=== PATIENT | male | born 1980 | race Caucasian/White ===

== ENCOUNTER 2017-10-28 00:32 | Observation (INO) ==
--- NOTE | 2017-10-28 00:54 | Emergency Department Note ---
Disposition Clinical Impression: Visual hallucinations, History of hepatitis C, History of meningitis Altered mental status Qualifiers: Altered mental status type: unspecified Qualified Code(s): R41.82 - Altered mental status, unspecified Disposition: Admitted As Inpatient Condition: Good Time of Disposition: 03:35 Abdominal Pain HPI - General Chief Complaint: ED Abdominal Pain Stated Complaint: abd pain, hallucinations Time Seen by Provider: 10/28/17 00:36 Source: patient, EMS Mode of arrival: ambulatory Limitations: no limitations Nursing Notes Reviewed: Yes Vital Signs Reviewed: Yes - History of Present Illness HPI Narrative: Patient is a 36-year-old male with extensive past medical history. 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 He presents today due to visual hallucinations along with epigastric and chest pain. The patient's girlfriend/ fiance is with him and she states that the patient has had hallucinations this evening. He has been saying that he has red spots on his hands and also believes that people are shooting him with heroin darts. The patient himself admits to marijuana use but denies any other drug use, specifically denies heroin use for the past 5-6 months. He does admit to a history of heroin use prior to that. The patient himself is complaining of epigastric/chest pain. He points to his epigastric region when he is asked where the pain is. He is telling me that he has spots on his hands but I am unable to appreciate anything on his hands. Denies any shortness of breath, nausea, vomiting, fevers , diarrhea, abdominal pain. states the patient had hallucinations once in the past after being released from hospital. However, she denies any other psychiatric history, he has not been admitted for psychiatric care in the past according to her. Pain Scale: 8 - Related Data Home Medications Medication Instructions Recorded Confirmed Albuterol Neb [AccuNeb] 1.25 mg IH QID 10/08/17 10/08/17 Allopurinol [Zyloprim 100 MG] 100 mg PO BID 10/08/17 10/08/17 Cyanocobalamin (B-12) [Vitamin B12] 1,000 mcg PO DAILY 10/08/17 10/08/17 Fluconazole [Diflucan] 200 mg PO DAILY 10/08/17 10/08/17 Folic Acid 1 mg PO DAILY 10/08/17 10/08/17 Gabapentin [Neurontin] 100 mg PO TID 10/08/17 10/08/17 LevETIRAcetam [Keppra Xr] 750 mg PO 10/08/17 Mag Oxide/D3/Turmeric Rt Xt 400 PO DAILY 10/08/17 [Magnesium-Vit D3-Turmeric Cap] Nitroglycerin [Nitrostat] 1 PO 10/08/17 clonazePAM [Clonazepam] 0.5 mg PO TID 10/08/17 10/08/17 traZODone [TraZODone] 50 mg PO HS 10/08/17 10/08/17 Previous Rx's Medication Instructions Recorded Hydrocodone/Acetaminophen [[place] 1 tab PO TID PRN #10 tab 09/24/15 5-325 Tablet] Allergies Allergy/AdvReac Type Severity Reaction Status Date / Time No Known Allergies Allergy Verified 10/08/17 12:10 All systems ED: reviewed and negative except as stated. Constitutional: Denies: fever Cardiovascular: Reports: chest pain Respiratory: Denies: cough, dyspnea Gastrointestinal: Reports: abdominal pain. Denies: nausea, vomiting, diarrhea, constipation Genitourinary: Denies: urgency, dysuria, frequency, hematuria Musculoskeletal: Denies: back pain Integumentary: Denies: rash Neurological: Denies: weakness, numbness, paresthesias Psychiatric: Reports: visual hallucinations. Denies: anxiety, depression, suicidal thoughts, homicidal thoughts, auditory hallucinations Abdominal Pain PMH - Past Medical History Medical history: Reports: CVA, other Male Surgical History: Reports: other Psychiatric history: Reports: no psych history - Social History Smoking status: Current every day smoker Alcohol use: Reports: none Drug use: Reports: opiates, marijuana, IV Drug Use Physical Exam - General General appearance: alert, in no apparent distress - Head Head exam: atraumatic, other (scars from previous cranial surgeries) - Eye Eye exam: Present: normal appearance, PERRL, EOMI - ENT ENT exam: normal exam, normal oropharynx, mucous membranes moist - Neck Neck exam: Present: normal inspection, full ROM, trachea midline. Absent: tenderness, meningismus - Chest Chest inspection: Present: normal inspection, symmetric chest wall rise - Respiratory Respiratory exam: Present: normal lung sounds bilaterally - Cardiovascular Cardiovascular exam: Present: regular rate, normal rhythm, normal heart sounds - Abdominal Exam Abdominal exam: Present: soft, Non-Tender. Absent: tenderness, distention, guarding, rebound, rigidity - Extremities Exam Extremities exam: Present: normal inspection, full ROM. Absent: tenderness, pedal edema - Neurological Exam Neurological exam: Present: alert, other (Oriented to person and place; mildly confused, having visual hallucinations.) - Psychiatric Psychiatric exam: Present: normal mood, flat affect. Absent: depressed, agitated, anxious - Skin Skin exam: Present: warm, dry, intact, normal color. Absent: rash, erythema, pallor, mottled Course Course Narrative: Vitals within normal limits. Physical exam shows old scars from previous cranial surgery's. No neck stiffness, no meningeal signs. Lungs clear to auscultation. Abdomen soft and nontender. No tenderness of chest. We did extensive lab workup. No elevation white blood cell count. Hemoglobin within normal limits. No major electrolyte abnormalities. Troponin negative. Lipase negative. AST and ALT elevated, however, patient does have a history of hepatitis C. Ammonia level not elevated. ABG shows a pH of 7.28. Carboxyhemoglobin level not majorly elevated. UA negative for UTI. Urine drug screen positive only for marijuana. Tylenol, aspirin, ethanol levels negative. CT of the head showed chronic changes from previous cysts. Otherwise no other acute intracranial abnormality. Chest x-ray negative for any acute cardiopulmonary process. No specific etiology identified for visual hallucinations. No major lab abnormalities that would prompt a CT of the abdomen and pelvis at this time, especially since he has no reproducible tenderness on abdominal exam. Patient currently sleeping comfortably on bed. We will admit to hospitalist due to visual hallucinations and epigastric pain. Chest X-Ray 10/28/17 00:45 IMPRESSION: No acute cardiopulmonary abnormality. D/ / Reji Alvares MD / Reji Alvares MD Interpreting Provider: Reji Alvares MD Head CT 10/28/17 00:47 IMPRESSION: 1. Interval development of multifocal areas of encephalomalacia involving the right frontal, right frontal parietal, right temporal, left frontal parietal and left occipital lobes. There are areas of coarse or dystrophic calcifications in the bilateral frontoparietal regions. Findings likely represent sequela of prior infarction or trauma. 2. Otherwise no definite acute findings. 3. No acute intracranial hemorrhage. D/ / Art Han MD / Art Han MD Interpreting Provider: Art Han MD Vital Signs Temperature 98.0 F 10/28/17 00:33 Pulse Rate 84 10/28/17 00:33 Respiratory Rate 20 10/28/17 00:33 Blood Pressure 113/59 10/28/17 00:33 O2 Sat by Pulse Oximetry 97 10/28/17 00:33 Temperature 98.0 F 10/28/17 00:33 Pulse Rate 84 10/28/17 00:33 Respiratory Rate 20 10/28/17 00:33 Blood Pressure 113/59 10/28/17 00:33 O2 Sat by Pulse Oximetry 95 10/28/17 00:54 Oxygen Delivery Oxygen Delivery Room Air Abdominal Pain - MDM Narrative Medical decision making narrative: Vitals within normal limits. Physical exam shows old scars from previous cranial surgery's. No neck stiffness, no meningeal signs. Lungs clear to auscultation. Abdomen soft and nontender. No tenderness of chest. We did extensive lab workup. No elevation white blood cell count. Hemoglobin within normal limits. No major electrolyte abnormalities. Troponin negative. Lipase negative. AST and ALT elevated, however, patient does have a history of hepatitis C. Ammonia level not elevated. ABG shows a pH of 7.28. Carboxyhemoglobin level not majorly elevated. UA negative for UTI. Urine drug screen positive only for marijuana. Tylenol, aspirin, ethanol levels negative. CT of the head showed chronic changes from previous cysts. Otherwise no other acute intracranial abnormality. Chest x-ray negative for any acute cardiopulmonary process. No specific etiology identified for visual hallucinations. No major lab abnormalities that would prompt a CT of the abdomen and pelvis at this time, especially since he has no reproducible tenderness on abdominal exam. Patient currently sleeping comfortably on bed. We will admit to hospitalist due to visual hallucinations and epigastric pain. - Medical Records Medical records reviewed: Yes I reviewed the patient's medical records. - Lab Data Lab results reviewed: Yes I reviewed the patient's lab results. Result diagrams: 10/28/17 01:25 10/28/17 01:25 Lab Results 10/28/17 10/28/17 10/28/17 Range/Units 00:52 00:54 01:25 WBC (4.3-11.1) K/mcL RBC (4.19-5.50) M/mcL Hgb (12.9-16.9) g/dL Hct (37.5-50.1) % MCV (83.0-100.0) fL MCH (28.0-33.3) pg MCHC (31.6-35.5) g/dL RDW (11.5-14.5) % Plt Count (140-400) K/mcL MPV (9.4-12.4) fL Immature Gran % (0-4) % Seg Neutrophils % % Lymphocytes % % Monocytes % % Eosinophils % % Basophils % % Neutrophils # (1.6-8.9) K/mcL Lymphocytes # (0.6-4.6) K/mcL Monocytes # (0.0-1.3) K/mcL Eosinophils # (0.0-0.6) K/mcL Basophils # (0.0-0.2) K/mcL PT 17.7 H (9.4-12.1) Seconds INR 1.6 APTT 31.8 (26.0-36.0) Seconds VBG pH (7.32-7.42) pH Units VBG pCO2 (41-51) mmHg VBG pO2 (25-50) mmHg VBG HCO3 (21-27) mEq/L Carboxyhemoglobin (0-5) % Sodium (136-145) mEq/L Potassium (3.5-5.1) mEq/L Chloride (98-107) mEq/L Carbon Dioxide (23-29) mEq/L BUN (6-20) mg/dL Creatinine (0.70-1.30) mg/dL Est GFR ( Amer) (> 60) Est GFR (Non-Af Amer) (> 60) BUN/Creatinine Ratio (6-26) Glucose (70-105) mg/dL Calculated Osmolality (280-300) Calcium (8.6-10.3) mg/dL Total Bilirubin (0.3-1.0) mg/dL Direct Bilirubin (0.0-0.2) mg/dL Indirect Bilirubin (0.0-1.2) mg/dL AST (13-39) Units/L ALT (7-52) Units/L Alkaline Phosphatase (34-104) Units/L Ammonia (16-53) mcmol/L Troponin I (< 0.04) ng/mL Serum Total Protein (6.4-8.9) g/dL Albumin (3.5-5.7) g/dL Globulin (2.4-3.5) g/dL Albumin/Globulin Ratio (1.1-2.2) Lipase (11-82) Units/L Urine Color Dark Yellow (Yellow) Urine Clarity Clear (Clear) Urine pH 6.0 (5.0-8.0) pH Units Ur Specific Jackson 1.028 H (1.010-1.025) Urine Protein 30 H (Neg-Trace) mg/dL Urine Glucose (UA) Normal (Normal) mg/dL Urine Ketones Negative (Negative) mg/dL Urine Blood Negative (Negative) Urine Nitrite Negative (Negative) Urine Bilirubin Small H (Negative) Urine Urobilinogen Normal (Normal) mg/dL Ur Leukocyte Esterase Trace H (Negative) Urine Microscopic RBC 3-5 H (0-3) per hpf Urine Microscopic WBC 5-15 H (0-3) per hpf Ur Squamous Epith Cells Many H (None-Few) per lpf Urine Bacteria None Seen (None-Few) per hpf Hyaline Casts None Seen (None-Few) per lpf Ur Culture Indicated? NO. (NO) Salicylates (15.0-30.0) mg/dL Urine Opiates Screen Negative (Ctaton=092) ng/mL Acetaminophen (10-30) mcg/mL Ur Barbiturates Screen Negative (Hgmmwf=372) ng/mL Ur Phencyclidine Scrn Negative (Cutoff=25) ng/mL Ur Amphetamines Screen Negative (Yvspzq=0858) ng/mL U Benzodiazepines Scrn Negative (Jqhtet=096) ng/mL Urine Cocaine Screen Negative (Cutoff= 300) ng/mL U Marijuana (THC) Screen Positive H (Cutoff = 50) ng/mL Ethyl Alcohol (0-10) mg/dL 10/28/17 10/28/17 10/28/17 Range/Units 01:25 01:25 01:25 WBC 5.4 (4.3-11.1) K/mcL RBC 4.13 L (4.19-5.50) M/mcL Hgb 12.7 L (12.9-16.9) g/dL Hct 39.9 (37.5-50.1) % MCV 96.6 (83.0-100.0) fL MCH 30.8 (28.0-33.3) pg MCHC 31.8 (31.6-35.5) g/dL RDW 16.0 H (11.5-14.5) % Plt Count 130 L (140-400) K/mcL MPV 12.0 (9.4-12.4) fL Immature Gran % 0.2 (0-4) % Seg Neutrophils % 64.9 % Lymphocytes % 26.1 % Monocytes % 6.9 % Eosinophils % 1.3 % Basophils % 0.6 % Neutrophils # 3.5 (1.6-8.9) K/mcL Lymphocytes # 1.4 (0.6-4.6) K/mcL Monocytes # 0.4 (0.0-1.3) K/mcL Eosinophils # 0.1 (0.0-0.6) K/mcL Basophils # 0.0 (0.0-0.2) K/mcL PT (9.4-12.1) Seconds INR APTT (26.0-36.0) Seconds VBG pH (7.32-7.42) pH Units VBG pCO2 (41-51) mmHg VBG pO2 (25-50) mmHg VBG HCO3 (21-27) mEq/L Carboxyhemoglobin (0-5) % Sodium 139 (136-145) mEq/L Potassium 4.1 (3.5-5.1) mEq/L Chloride 112 H (98-107) mEq/L Carbon Dioxide 22 L (23-29) mEq/L BUN 14 (6-20) mg/dL Creatinine 1.08 (0.70-1.30) mg/dL Est GFR ( Amer) > 60 (> 60) Est GFR (Non-Af Amer) > 60 (> 60) BUN/Creatinine Ratio 13 (6-26) Glucose 119 H (70-105) mg/dL Calculated Osmolality 290 (280-300) Calcium 8.4 L (8.6-10.3) mg/dL Total Bilirubin 0.7 (0.3-1.0) mg/dL Direct Bilirubin 0.3 H (0.0-0.2) mg/dL Indirect Bilirubin 0.4 (0.0-1.2) mg/dL AST 71 H (13-39) Units/L ALT 80 H (7-52) Units/L Alkaline Phosphatase 165 H (34-104) Units/L Ammonia (16-53) mcmol/L Troponin I < 0.03 (< 0.04) ng/mL Serum Total Protein 6.2 L (6.4-8.9) g/dL Albumin 3.6 (3.5-5.7) g/dL Globulin 2.6 (2.4-3.5) g/dL Albumin/Globulin Ratio 1.4 (1.1-2.2) Lipase 15 (11-82) Units/L Urine Color (Yellow) Urine Clarity (Clear) Urine pH (5.0-8.0) pH Units Ur Specific [place] (1.010-1.025) Urine Protein (Neg-Trace) mg/dL Urine Glucose (UA) (Normal) mg/dL Urine Ketones (Negative) mg/dL Urine Blood (Negative) Urine Nitrite (Negative) Urine Bilirubin (Negative) Urine Urobilinogen (Normal) mg/dL Ur Leukocyte Esterase (Negative) Urine Microscopic RBC (0-3) per hpf Urine Microscopic WBC (0-3) per hpf Ur Squamous Epith Cells (None-Few) per lpf Urine Bacteria (None-Few) per hpf Hyaline Casts (None-Few) per lpf Ur Culture Indicated? (NO) Salicylates (15.0-30.0) mg/dL Urine Opiates Screen (Vlhaqe=087) ng/mL Acetaminophen (10-30) mcg/mL Ur Barbiturates Screen (Eqnsij=244) ng/mL Ur Phencyclidine Scrn (Cutoff=25) ng/mL Ur Amphetamines Screen (Whbhfx=8611) ng/mL U Benzodiazepines Scrn (Edpszu=374) ng/mL Urine Cocaine Screen (Cutoff= 300) ng/mL U Marijuana (THC) Screen (Cutoff = 50) ng/mL Ethyl Alcohol (0-10) mg/dL 10/28/17 10/28/17 10/28/17 Range/Units 01:25 01:25 01:25 WBC (4.3-11.1) K/mcL RBC (4.19-5.50) M/mcL Hgb (12.9-16.9) g/dL Hct (37.5-50.1) % MCV (83.0-100.0) fL MCH (28.0-33.3) pg MCHC (31.6-35.5) g/dL RDW (11.5-14.5) % Plt Count (140-400) K/mcL MPV (9.4-12.4) fL Immature Gran % (0-4) % Seg Neutrophils % % Lymphocytes % % Monocytes % % Eosinophils % % Basophils % % Neutrophils # (1.6-8.9) K/mcL Lymphocytes # (0.6-4.6) K/mcL Monocytes # (0.0-1.3) K/mcL Eosinophils # (0.0-0.6) K/mcL Basophils # (0.0-0.2) K/mcL PT (9.4-12.1) Seconds INR APTT (26.0-36.0) Seconds VBG pH (7.32-7.42) pH Units VBG pCO2 (41-51) mmHg VBG pO2 (25-50) mmHg VBG HCO3 (21-27) mEq/L Carboxyhemoglobin 6.1 H (0-5) % Sodium (136-145) mEq/L Potassium (3.5-5.1) mEq/L Chloride (98-107) mEq/L Carbon Dioxide (23-29) mEq/L BUN (6-20) mg/dL Creatinine (0.70-1.30) mg/dL Est GFR ( Amer) (> 60) Est GFR (Non-Af Amer) (> 60) BUN/Creatinine Ratio (6-26) Glucose (70-105) mg/dL Calculated Osmolality (280-300) Calcium (8.6-10.3) mg/dL Total Bilirubin (0.3-1.0) mg/dL Direct Bilirubin (0.0-0.2) mg/dL Indirect Bilirubin (0.0-1.2) mg/dL AST (13-39) Units/L ALT (7-52) Units/L Alkaline Phosphatase (34-104) Units/L Ammonia 34 (16-53) mcmol/L Troponin I (< 0.04) ng/mL Serum Total Protein (6.4-8.9) g/dL Albumin (3.5-5.7) g/dL Globulin (2.4-3.5) g/dL Albumin/Globulin Ratio (1.1-2.2) Lipase (11-82) Units/L Urine Color (Yellow) Urine Clarity (Clear) Urine pH (5.0-8.0) pH Units Ur Specific [place] (1.010-1.025) Urine Protein (Neg-Trace) mg/dL Urine Glucose (UA) (Normal) mg/dL Urine Ketones (Negative) mg/dL Urine Blood (Negative) Urine Nitrite (Negative) Urine Bilirubin (Negative) Urine Urobilinogen (Normal) mg/dL Ur Leukocyte Esterase (Negative) Urine Microscopic RBC (0-3) per hpf Urine Microscopic WBC (0-3) per hpf Ur Squamous Epith Cells (None-Few) per lpf Urine Bacteria (None-Few) per hpf Hyaline Casts (None-Few) per lpf Ur Culture Indicated? (NO) Salicylates < 5.0 L (15.0-30.0) mg/dL Urine Opiates Screen (Aavopp=815) ng/mL Acetaminophen < 1.0 L (10-30) mcg/mL Ur Barbiturates Screen (Xcnacj=351) ng/mL Ur Phencyclidine Scrn (Cutoff=25) ng/mL Ur Amphetamines Screen (Lvikkm=6202) ng/mL U Benzodiazepines Scrn (Hdxtki=554) ng/mL Urine Cocaine Screen (Cutoff= 300) ng/mL U Marijuana (THC) Screen (Cutoff = 50) ng/mL Ethyl Alcohol < 10 (0-10) mg/dL 10/28/17 Range/Units 01:38 WBC (4.3-11.1) K/mcL RBC (4.19-5.50) M/mcL Hgb (12.9-16.9) g/dL Hct (37.5-50.1) % MCV (83.0-100.0) fL MCH (28.0-33.3) pg MCHC (31.6-35.5) g/dL RDW (11.5-14.5) % Plt Count (140-400) K/mcL MPV (9.4-12.4) fL Immature Gran % (0-4) % Seg Neutrophils % % Lymphocytes % % Monocytes % % Eosinophils % % Basophils % % Neutrophils # (1.6-8.9) K/mcL Lymphocytes # (0.6-4.6) K/mcL Monocytes # (0.0-1.3) K/mcL Eosinophils # (0.0-0.6) K/mcL Basophils # (0.0-0.2) K/mcL PT (9.4-12.1) Seconds INR APTT (26.0-36.0) Seconds VBG pH 7.28 L (7.32-7.42) pH Units VBG pCO2 46 (41-51) mmHg VBG pO2 39 (25-50) mmHg VBG HCO3 22 (21-27) mEq/L Carboxyhemoglobin (0-5) % Sodium (136-145) mEq/L Potassium (3.5-5.1) mEq/L Chloride (98-107) mEq/L Carbon Dioxide (23-29) mEq/L BUN (6-20) mg/dL Creatinine (0.70-1.30) mg/dL Est GFR ( Amer) (> 60) Est GFR (Non-Af Amer) (> 60) BUN/Creatinine Ratio (6-26) Glucose (70-105) mg/dL Calculated Osmolality (280-300) Calcium (8.6-10.3) mg/dL Total Bilirubin (0.3-1.0) mg/dL Direct Bilirubin (0.0-0.2) mg/dL Indirect Bilirubin (0.0-1.2) mg/dL AST (13-39) Units/L ALT (7-52) Units/L Alkaline Phosphatase (34-104) Units/L Ammonia (16-53) mcmol/L Troponin I (< 0.04) ng/mL Serum Total Protein (6.4-8.9) g/dL Albumin (3.5-5.7) g/dL Globulin (2.4-3.5) g/dL Albumin/Globulin Ratio (1.1-2.2) Lipase (11-82) Units/L Urine Color (Yellow) Urine Clarity (Clear) Urine pH (5.0-8.0) pH Units Ur Specific Jackson (1.010-1.025) Urine Protein (Neg-Trace) mg/dL Urine Glucose (UA) (Normal) mg/dL Urine Ketones (Negative) mg/dL Urine Blood (Negative) Urine Nitrite (Negative) Urine Bilirubin (Negative) Urine Urobilinogen (Normal) mg/dL Ur Leukocyte Esterase (Negative) Urine Microscopic RBC (0-3) per hpf Urine Microscopic WBC (0-3) per hpf Ur Squamous Epith Cells (None-Few) per lpf Urine Bacteria (None-Few) per hpf Hyaline Casts (None-Few) per lpf Ur Culture Indicated? (NO) Salicylates (15.0-30.0) mg/dL Urine Opiates Screen (Hxjipo=328) ng/mL Acetaminophen (10-30) mcg/mL Ur Barbiturates Screen (Jhxucc=633) ng/mL Ur Phencyclidine Scrn (Cutoff=25) ng/mL Ur Amphetamines Screen (Boqogn=6417) ng/mL U Benzodiazepines Scrn (Bxtapx=920) ng/mL Urine Cocaine Screen (Cutoff= 300) ng/mL U Marijuana (THC) Screen (Cutoff = 50) ng/mL Ethyl Alcohol (0-10) mg/dL - Radiology Data Radiology results reviewed: Yes I reviewed the patient's radiology results. Chest X-Ray 10/28/17 00:45 IMPRESSION: No acute cardiopulmonary abnormality. D/ / Reji Alvares MD / Reji Alvares MD Interpreting Provider: Reji Alvares MD Head CT 10/28/17 00:47 IMPRESSION: 1. Interval development of multifocal areas of encephalomalacia involving the right frontal, right frontal parietal, right temporal, left frontal parietal and left occipital lobes. There are areas of coarse or dystrophic calcifications in the bilateral frontoparietal regions. Findings likely represent sequela of prior infarction or trauma. 2. Otherwise no definite acute findings. 3. No acute intracranial hemorrhage. D/ / Art Han MD / Art Han MD Interpreting Provider: Art Han MD - EKG Data EKG attestation: Yes I reviewed and interpreted this EKG. EKG results narrative: 10/28/2017. Normal sinus rhythm. Rate 81. SC 160. QRS 102. QTC 446. Left axis deviation. No acute ST elevation or depression. S.B.A.R. - S.B.A.R. Situation: Demographics, MOA Background: Presenting Complaint, Relevant PMH, Meds, & Allergies Assessment: Vital Signs, Course and respsone to treatment, Exam Concerns, Patient/Family Expectation, Pertinant Lab Results, Outstanding Labs Recommendation: Barrier(s) to disposition, Recommendation based on pending studies, treatments, or consults S.B.A.R. Report Given to: Dr. Orlando
[2017-10-28 01:01] LABS: Bilirubin,Urine Small (Negative); Blood,Urine Negative (Negative); Clarity,Urine Clear (Clear); Color,Urine Dark Yellow (Yellow); Glucose,Urine (UA) Normal (Normal); Ketones,Urine Negative (Negative); Leukocyte Esterase,Urine Trace (Negative); Nitrite,Urine Negative (Negative); Protein,Urine 30 mg/dL (Neg-Trace); Specific Gravity,Urine 1.028 (1.010-1.025); Urobilinogen,Urine Normal (Normal)
[2017-10-28 01:03] LABS: Bacteria,Urine None Seen per hpf (None-Few); Hyaline Casts,Urine None Seen per lpf (None-Few); Squamous Epithelial Cell,Urine Many per lpf (None-Few)
[2017-10-28 01:06] LABS: Amphetamine Screen,Urine Negative ng/mL (Cutoff=1000); Barbiturate Screen,Urine Negative ng/mL (Cutoff=200); Benzodiazepines Screen,Urine Negative ng/mL (Cutoff=200); Cannabinoid Screen,Urine Positive ng/mL (Cutoff = 50); Cocaine Screen,Urine Negative ng/mL (Cutoff= 300); Opiate Screen,Urine Negative ng/mL (Cutoff=300); Phencyclidine Screen,Urine Negative ng/mL (Cutoff=25)
[2017-10-28 01:34] LABS: Basophils % 0.6 %; Eosinophils # 0.1 K/mcL (0.0-0.6); Eosinophils % 1.3 %; Hematocrit 39.9 % (37.5-50.1); Hemoglobin 12.7 g/dL (12.9-16.9); Immature Granulocytes % 0.2 % (0-4); Lymphocytes # 1.4 K/mcL (0.6-4.6); Lymphocytes % 26.1 %; Mean Corpuscular HGB Conc 31.8 g/dL (31.6-35.5); Mean Corpuscular Hemoglobin 30.8 pg (28.0-33.3); Mean Corpuscular Volume 96.6 fL (83.0-100.0); Monocytes # 0.4 K/mcL (0.0-1.3); Monocytes % 6.9 %; Neutrophils # 3.5 K/mcL (1.6-8.9); Platelet Count 130 K/mcL (140-400); Red Blood Count 4.13 M/mcL (4.19-5.50); Segmented Neutrophils % 64.9 %
[2017-10-28 01:40] LABS: INR 1.6; Prothrombin Time 17.7 Seconds (9.4-12.1)
[2017-10-28 01:41] LABS: VBG HCO3 22 mEq/L (21-27); VBG PCO2 46 mmHg (41-51); VBG PH 7.28 pH Units (7.32-7.42); VBG PO2 39 mmHg (25-50)
[2017-10-28 01:42] LABS: Activated Partial Thrombo Time 31.8 Seconds (26.0-36.0)
[2017-10-28 01:51] LABS: Acetaminophen < 1.0 mcg/mL (10-30); Ethanol < 10 mg/dL (0-10); Salicylate < 5.0 mg/dL (15.0-30.0)
[2017-10-28 01:53] LABS: Alanine Aminotransferase 80 Units/L (7-52); Albumin 3.6 g/dL (3.5-5.7); Albumin/Globulin Ratio 1.4 (1.1-2.2); Alkaline Phosphatase 165 Units/L (34-104); Aspartate Amino Transferase 71 Units/L (13-39); BUN/Creatinine Ratio 13 (6-26); Bilirubin,Direct 0.3 mg/dL (0.0-0.2); Bilirubin,Indirect 0.4 mg/dL (0.0-1.2); Bilirubin,Total 0.7 mg/dL (0.3-1.0); Blood Urea Nitrogen 14 mg/dL (6-20); Calcium 8.4 mg/dL (8.6-10.3); Carbon Dioxide 22 mEq/L (23-29); Chloride 112 mEq/L (98-107); Globulin 2.6 g/dL (2.4-3.5); Glucose 119 mg/dL (70-105); Lipase 15 Units/L (11-82); Osmolality,Calculated 290 (280-300); Potassium 4.1 mEq/L (3.5-5.1); Sodium 139 mEq/L (136-145); Total Protein 6.2 g/dL (6.4-8.9); eGFR For African Americans > 60 (> 60); eGFR For Non-African Americans > 60 (> 60)
--- NOTE | 2017-10-28 03:36 | Emergency Department Note ---
START Narrative - START START: I examined this patient and my medical decision-making was reviewed with the Resident Physician. I agree with the documented findings, disposition and treatment plan as described except to the extent set forth below. 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 He does not findings of previous structural abnormalities on CT of his brain. These do appear to be remote in nature. Additionally basic laboratory analyses were obtained including a blood gas which shows mildly low pH with no other significant arrangements identified beyond transaminitis. The patient does have ongoing hallucinations and nonspecific complaints. We would proceed with admission for evaluation of altered mental status. Additionally he does have findings of transaminitis. Critical care performed:35 Time is exclusive of separately billable procedures. Time includes: direct patient care, patient reassessment, coordination of patient care, interpretation of data (laboratory data, radiology data, and respiratory data), review of patient's medical records, medical consultation and documentation of patient care. Procedures included in critical care time:0 Procedures excluded from critical care time: 0
[2017-10-28] MEDS ORDERED: *HR* HYDROcodone/Acet 5/325 mg TABLET PO PRN (04:35)
[2017-10-28] MEDS ORDERED: *HR* Promethazine 25 MG/ML VIAL IVP PRN (04:35)
[2017-10-28] MEDS ORDERED: Ondansetron 4 MG/2 ML VIAL IVP PRN (04:35)
[2017-10-28] MEDS ORDERED: Mag Hydrox/Al Hydrox/Simeth 30 ML UDC PO PRN (04:35)
[2017-10-28] MEDS ORDERED: Acetaminophen 325 MG TABLET PO PRN (04:35)
[2017-10-28] MEDS ORDERED: Naloxone 0.4 MG/ML INJ IVP PRN (04:35)
[2017-10-28] MEDS ORDERED: 0.9 % Sodium Chloride 1,000 ML IVC SCH (04:45)
--- NOTE | 2017-10-28 05:43 | Internal Med History&Physical ---
Date of Encounter: 10/28/17 Time of Encounter: 04:00 Assessment and Plan (1) Acute delirium Current visit: Yes Status: Acute Will place the pt into Med Surg for observation His delirium with hallucinations could be his baseline after the recent singificnat / complicated meningitis , CVA and brain surgery Reviewed his CT of Head showed multi focal areas of encephalomalacia involving the Rt frontal, Parietal, Temporal and Left frontal, pariteal and Occipital Which are probably from his recent brain surgeries So I am not sure wether he has any acute infectious process going on now or these are irreversible behavioral changes from his past medical problems However at this point we will check CSF to r/o any acute infectious process..Will consult IR for LP Consult yocasta in AM for further eval Will try to obtain his medical records from [facility] IV hydration (2) Elevated LFTs Current visit: Yes Status: Acute His LFT's are slightly elevated could be due to his chronic hep C will check Liver U/S Will check ammonia level too (3) History of hepatitis C Current visit: Yes Status: Acute (4) History of meningitis Current visit: Yes Status: Acute (5) Visual hallucinations Current visit: Yes Status: Acute (6) Tobacco dependence Current visit: Yes Status: Acute Counseled to quit smoking on nicotine patch (7) Substance abuse Current visit: Yes Status: Acute UDS came back positive for Marijuana counseled to quit drugs Internal Medicine - H&P: HPI Chief complaint: hallucinations Admitted From: Emergency Dept Plans for Post Hospital Care: Home History of present illness: Mr. Avery is a 36 year old male with known Chronic Hep C, IVDA, who recently had an complicated hospital stay at [facility] from Apr 2017 to Sep 2017, with Infectious endocarditis, Pneumonia, Cryptococcal meningitis, CVA, brain cysts s/ p brain surgery as per pt's significant other, now he was presented to ER with confusion / altered mental status from last one week. As per his significnat other, he did have some slowness / unsteady gait / functional deficit since that complicated fungal meningitis and CVA , however now he looks more confused and c/o visual and auditory hallucinations. Pt is hearing voices and seeing things. She states the patient had hallucinations once in the past after being released from hospital. However, she denies any other psychiatric history, he has not been admitted for psychiatric care in the past. Now he is alert, awake and oriented to person, and self only.. Looks confused and disoriented. Denied any suicidal ideation. Past Med Surg Social Fam HX - Past Medical History Medical history: CVA, other (Meningitis, Infectious endocarditis) Psychiatric history: other (h/o IVDA) - Past Surgical History Surgical History: other (Right hand) - Social History Smoking Status: Current every day smoker Smokeless Tobacco Status: No Alcohol use: none Drug use: opiates, marijuana, IV Drug Use - Additional Family History Additional family history: Family hsitory reviewed and non contribuitory to current problem. Internal Medicine - H&P: Meds Hydrocodone/Acetaminophen [[place] 5-325 Tablet] 1 tab PO TID PRN #10 tab [Rx] Albuterol Neb [AccuNeb] 1.25 mg IH QID 10/08/17 [History] Allopurinol [Zyloprim 100 MG] 100 mg PO BID 10/08/17 [History] Cyanocobalamin (B-12) [Vitamin B12] 1,000 mcg PO DAILY 10/08/17 [History] Fluconazole [Diflucan] 200 mg PO DAILY 10/08/17 [History] Folic Acid 1 mg PO DAILY 10/08/17 [History] Gabapentin [Neurontin] 100 mg PO TID 10/08/17 [History] LevETIRAcetam [Keppra Xr] 750 mg PO 10/08/17 [History] Mag Oxide/D3/Turmeric Rt Xt [Magnesium-Vit D3-Turmeric Cap] 400 PO DAILY [History] Nitroglycerin [Nitrostat] 1 PO 10/08/17 [History] clonazePAM [Clonazepam] 0.5 mg PO TID 10/08/17 [History] traZODone [TraZODone] 50 mg PO HS 10/08/17 [History] 3 Allergy/AdvReac Type Severity Reaction Status Date / Time No Known Allergies Allergy Verified 10/08/17 12:10 All Systems PM: A 10-system review of systems was performed and is negative for pertinent findings except as documented above in the HPI. Review of systems: All the systems are reviewed everything is benign except the systems and symptoms I mentioned in the history of present illness - Constitutional Vitals: Temp Pulse Resp BP Pulse Ox 98 F 73 18 114/73 100 10/28/17 05:00 10/28/17 05:00 10/28/17 05:09 10/28/17 05:09 10/28/17 05:00 General appearance: Present: A&O X 1, answers questions appropriately - Head Head exam: Present: atraumatic, normal inspection - Neck Neck exam general surgery: Present: supple - Respiratory Respiratory exam: Present: decreased breath sounds. Absent: rales, respiratory distress, rhonchi, wheezes - Cardiovascular Cardiovascular exam: Present: RRR, +S1, +S2. Absent: tachycardia - Extremities Exam Extremities exam: Absent: calf tenderness, pedal edema, tenderness - Back Exam Back exam: Absent: CVA tenderness (L), CVA tenderness (R) - Neurological Exam Neurological exam: Present: alert, altered, reflexes normal, no focal deficits, strengths equal and symetr throughout (generalized weakness noticed..). Absent : pronater drift, facial droop, speech deficit - Psychiatric Psychiatric exam: Present: anxious (Hallucinations++) Internal Med - H&P Results - Labs CBC & Chem 7: 10/28/17 01:25 10/28/17 01:25
--- NOTE | 2017-10-28 14:27 | Event Note ---
Date of Encounter: 10/28/17 Time of Encounter: 14:23 Seen and examined at the bedside . He is placed in observation or hallucinations. Patient did have positive THC test Psychiatry has been consulted. He does continue to state that he hears voices often on Will follow closely from Neuropsych standpoint. Per NURSE MIDWIFE/CLINICAL INSTRUCTOR his auditory hallucinations have been minimal No clear indication to check CSF given lack of meningismus and normal WBC. No fevers will hold off on LP for now. Rest as n H&P Rima De La Cruz MD FACP
[2017-10-28] MEDS: Gabapentin 100 MG CAPSULE PO SCH ×2 (16:21→21:30)
--- NOTE | 2017-10-28 17:48 | Electrocardiograph Report ---
[place] [id number] Test Date: 2017-10-28 Pat Name: Ramon Avery Department: 102 Room: 3A43 Gender: M Patient Day Coordinator: : 1980 Requested By: Yon Black Order Number: [id number] Reading MD: Faisal Mahajan DO Measurements Intervals Dante Rate: 81 P: 21 IN: 160 QRS: -54 QRSD: 102 T: 39 QT: 409 QTc: 446 Interpretive Statements SINUS RHYTHM POSSIBLE LEFT ATRIAL ENLARGEMENT LEFT ANTERIOR FASCICULAR BLOCK NONSPECIFIC ST & T-WAVE ABNORMALITY Electronically Signed On 10-28-2017 17:46:31 EST by Faisal Mahajan DO
[2017-10-28] MEDS ORDERED: 0.9 % Sodium Chloride 500 ML IVC ONE (20:57)
[2017-10-28] MEDS: levETIRAcetam 250 MG TABLET PO SCH (21:30)
[2017-10-28] MEDS: traZODone 50 MG TABLET PO SCH (21:30)
[2017-10-28] MEDS: Sennosides 8.6 MG TABLET PO SCH (21:30)
[2017-10-29 06:33] LABS: Alanine Aminotransferase 79 Units/L (7-52); Albumin 3.5 g/dL (3.5-5.7); Albumin/Globulin Ratio 1.4 (1.1-2.2); Alkaline Phosphatase 146 Units/L (34-104); Aspartate Amino Transferase 76 Units/L (13-39); BUN/Creatinine Ratio 12 (6-26); Bilirubin,Total 0.9 mg/dL (0.3-1.0); Blood Urea Nitrogen 14 mg/dL (6-20); Calcium 8.5 mg/dL (8.6-10.3); Carbon Dioxide 19 mEq/L (23-29); Chloride 113 mEq/L (98-107); Chol/HDL Ratio 5.1 (0-4.9); Cholesterol 92 mg/dL (< 200); Globulin 2.5 g/dL (2.4-3.5); Glucose 133 mg/dL (70-105); HDL Cholesterol 18 mg/dL (40-59); LDL Cholesterol,Calculated 63 mg/dL (0-99); Magnesium 1.8 mg/dL (1.6-2.6); Osmolality,Calculated 290 (280-300); Sodium 139 mEq/L (136-145); Triglycerides 53 mg/dL (< 150); eGFR For African Americans > 60 (> 60); eGFR For Non-African Americans > 60 (> 60)
[2017-10-29] MEDS ORDERED: Cyanocobalamin (B-12) 1,000 MCG TABLET PO SCH (09:00)
[2017-10-29] MEDS ORDERED: Folic Acid 1 MG TABLET PO SCH (09:00)
[2017-10-29] MEDS ORDERED: Magnesium Oxide 400 MG TABLET PO SCH (09:00)
[2017-10-29] MEDS: levETIRAcetam 250 MG TABLET PO SCH ×2 (09:14→21:23)
[2017-10-29] MEDS: Gabapentin 100 MG CAPSULE PO SCH ×3 (09:14→21:23)
[2017-10-29] MEDS: Sennosides 8.6 MG TABLET PO SCH ×2 (09:14→21:23)
--- NOTE | 2017-10-29 12:06 | Consult Note ---
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 This may be a side effect of clonazepam. The patient has risk factors for the development of visual hallucinations. He has multiple infarcts with encephalomalacia and has visual field changes with her vision impairment. Nonetheless characteristic of hallucinations due to general medical condition he has insight into them and he can be reassured by others such as samuel. I do not feel the patient needs psychiatric hospitalization for the hallucinations. He should discuss with his primary care physician whether this is a side effect or whether this needs further treatment such as with antipsychotics. I do not think he needs antipsychotics this time (2) Minor neurocognitive disorder Current visit: Yes Status: Chronic Assessment & Recommendation: The patient's cognitive impairment comes from multiple areas of changes in the brain. Nonetheless the patient is able to function within the structured environment of his home. Further planning may be necessary regarding finances are managed to person. This patient is also somewhat impulsive and disinhibited this may explain some of his behavior and his demands to leave. Nonetheless he is legally competent this time. I will once again discussing his cognitive impairments and things that might be helpful to help memory concentration attention and reasoning can be taken up with his primary care physician or treating physician. I do not think psychiatric hospitalization is necessary at this time the patient may go home with his mother or fiance or other responsible family member or friend History of Present Illness Patient: new to practice Requesting Physician: Dean Orlando MD Reason for consult: Auditory hallucinations History of present illness: Mr. Avery is a 36 year old male was seen in his hospital room on 3 day period the patient had been admitted and there were reports of auditory hallucinations. However the call today was because the patient one believed to go home. The patient was seen on an urgent basis. Auditory hallucinations were no longer a problem but will be discussed.. Chief complaint I hear voices but my fiance tells me not pay attention to them. History of present illness the patient was in his usual state of health and mood about 1 year ago and then he developed meningitis with a cerebral abscess and in the process of debridement or neurosurgical procedure he developed a multi-infarct disorder. Discontinue seen on the head CT with multiple areas of frontal temporal encephalomalacia. The patient also had parieto-occipital changes and reports a significant vision disturbances. The patient says he presented a few nights for problems with belly pain that he has problems with belly since he would had a feeding tube. Visual trait because he had required [facility] at [facility]. The patient has been home for the past few months and reports that hearing voices of people and thinking that others are shooting at him or a common occurrence. He is reassured by his fiancee about this he blames the medicine Klonopin or clonazepam 0.5 mg 3 times a day. He did not report that he was on antipsychotics or the significantly distressed. The patient reported no significant psychiatric history used to work in a [employer] but now has significant vision problems. These were tested in the interview and the patient has a left-sided hemming neglect and deficiencies in peripheral vision. He is able to discern things if he looks at them directly. The patient has applied for SSDI and lives with his mother and his fiancee. She has 2 children that live outside the house. Patient has no income coming in his [id number] looking over his finances but since he has no finances he has no payee has no legal guardian. The patient says that he has been there long enough to need like to leave to go home. On mental status exam the patient was alert and oriented 3 he was casually groomed and dressed his speech was within normal limits he is edentulous and he is a rather childlike and mischievous B demeanor. His affect is full range. His mood is mildly expansive and he is disinhibited the thought content is logical and goal-directed there is no evidence suicidality or psychosis. The patient made a variety of statements he showed impairment in executive function he had impairments in short-term memory and attention but was able to grasp the majority of the conversation. His reasoning is fair to poor and he may do well with the assistance of others. Nonetheless patient did not have active auditory hallucinations or delusions or suicidal or homicidal ideation was generally cooperative with the examiner. The patient had a positive Myerson sign and some motor impersistence CC: Dean Orlando MD Past Med Surg Social Fam HX - Past Medical History Medical history: CVA, other - Past Surgical History Surgical History: other - Social History Smoking Status: Current every day smoker Smokeless Tobacco Status: No Alcohol use: none Drug use: opiates, marijuana, IV Drug Use Medications & Allergies Albuterol Neb [AccuNeb] 1.25 mg IH QID 10/08/17 [History] Cyanocobalamin (B-12) [Vitamin B12] 1,000 mcg PO DAILY 10/08/17 [History] Folic Acid 1 mg PO DAILY 10/08/17 [History] Gabapentin [Neurontin] 100 mg PO TID 10/08/17 [History] Nitroglycerin [Nitrostat] 0.4 mg PO Q5M PRN 10/08/17 [History] clonazePAM [Clonazepam] 0.5 mg PO TID 10/08/17 [History] traZODone [TraZODone] 50 mg PO HS 10/08/17 [History] Acetaminophen [Non-Aspirin] 650 mg PO Q6H PRN 10/28/17 [History] Allopurinol [Zyloprim 100 MG] 100 mg PO BID 10/28/17 [History] Docusate [Colace] 100 mg PO BID 10/28/17 [History] Ipratropium/Albuterol Neb [Duoneb] 3 ml IH Q4HR PRN 10/28/17 [History] LevETIRAcetam [Keppra] 750 mg PO BID 10/28/17 [History] Magnesium Oxide [Magnesium] 400 mg PO DAILY 10/28/17 [History] Polyethylene Glycol 3350 [MiraLAX] 17 gm PO DAILY 10/28/17 [History] Sennosides [Senna] 8.6 mg PO BID 10/28/17 [History] 3 Allergy/AdvReac Type Severity Reaction Status Date / Time No Known Allergies Allergy Verified 10/08/17 12:10 Review of Systems Eyes: Reports: vision change Gastrointestinal: Reports: abdominal pain, nausea Psychiatric: Reports: auditory hallucinations, visual hallucinations Mental Status Exam Patient orientation: Yes Person, Yes Time, Yes Place Level of alertness: Alert Patient appearance: Appropriate Behavior: distractible, impulsive Psychomotor activity: Increased Eye contact: Maintains Eye Contact Mood description: Expansive Affect description: inappropriate to situation Speech pattern: Normal rate, Normal rhythm Speech volume: Normal Thought process: Intact, Logical Thought content: Yes Intact Perceptual disturbances: Yes Auditory hallucinations, Yes Visual hallucinations Attention span: Capable of Focused Attention Memory description: Immediate Impaired, Remote Intact Patient reliability: Questionable Historian Intelligence estimate: Average Judgment: Fair Insight: Full Results - Vital Signs Vital signs: Temp Pulse Resp BP Pulse Ox 98.1 F 103 16 131/78 92 10/29/17 11:39 10/29/17 11:39 10/29/17 11:39 10/29/17 11:39 10/29/17 11:39 - Labs Labs: Laboratory Last Values WBC 5.4 K/mcL (4.3-11.1) 10/28/17 01:25 RBC 4.13 M/mcL (4.19-5.50) L 10/28/17 01:25 Hgb 12.7 g/dL (12.9-16.9) L 10/28/17 01:25 Hct 39.9 % (37.5-50.1) 10/28/17 01:25 MCV 96.6 fL (83.0-100.0) 10/28/17 01:25 MCH 30.8 pg (28.0-33.3) 10/28/17 01:25 MCHC 31.8 g/dL (31.6-35.5) 10/28/17 01:25 RDW 16.0 % (11.5-14.5) H 10/28/17 01:25 Plt Count 130 K/mcL (140-400) L 10/28/17 01:25 MPV 12.0 fL (9.4-12.4) 10/28/17 01:25 Immature Gran % 0.2 % (0-4) 10/28/17 01:25 Seg Neutrophils % 64.9 % 10/28/17 01:25 Lymphocytes % 26.1 % 10/28/17 01:25 Monocytes % 6.9 % 10/28/17 01:25 Eosinophils % 1.3 % 10/28/17 01:25 Basophils % 0.6 % 10/28/17 01:25 Neutrophils # 3.5 K/mcL (1.6-8.9) 10/28/17 01:25 Lymphocytes # 1.4 K/mcL (0.6-4.6) 10/28/17 01:25 Monocytes # 0.4 K/mcL (0.0-1.3) 10/28/17 01:25 Eosinophils # 0.1 K/mcL (0.0-0.6) 10/28/17 01:25 Basophils # 0.0 K/mcL (0.0-0.2) 10/28/17 01:25 PT 17.7 Seconds (9.4-12.1) H 10/28/17 01:25 INR 1.6 10/28/17 01:25 APTT 31.8 Seconds (26.0-36.0) 10/28/17 01:25 VBG pH 7.28 pH Units (7.32-7.42) L 10/28/17 01:38 VBG pCO2 46 mmHg (41-51) 10/28/17 01:38 VBG pO2 39 mmHg (25-50) 10/28/17 01:38 VBG HCO3 22 mEq/L (21-27) 10/28/17 01:38 Carboxyhemoglobin 6.1 % (0-5) H 10/28/17 01:25 Sodium 139 mEq/L (136-145) 10/29/17 05:12 Potassium 4.0 mEq/L (3.5-5.1) 10/29/17 05:12 Chloride 113 mEq/L (98-107) H 10/29/17 05:12 Carbon Dioxide 19 mEq/L (23-29) L 10/29/17 05:12 BUN 14 mg/dL (6-20) 10/29/17 05:12 Creatinine 1.14 mg/dL (0.70-1.30) 10/29/17 05:12 Est GFR ( Amer) > 60 (> 60) 10/29/17 05:12 Est GFR (Non-Af Amer) > 60 (> 60) 10/29/17 05:12 BUN/Creatinine Ratio 12 (6-26) 10/29/17 05:12 Glucose 133 mg/dL (70-105) H 10/29/17 05:12 POC Glucose 70 (58-89) 10/28/17 04:58 Calculated Osmolality 290 (280-300) 10/29/17 05:12 Calcium 8.5 mg/dL (8.6-10.3) L 10/29/17 05:12 Magnesium 1.8 mg/dL (1.6-2.6) 10/29/17 05:12 Total Bilirubin 0.9 mg/dL (0.3-1.0) 10/29/17 05:12 Direct Bilirubin 0.3 mg/dL (0.0-0.2) H 10/28/17 01:25 Indirect Bilirubin 0.4 mg/dL (0.0-1.2) 10/28/17 01:25 AST 76 Units/L (13-39) H 10/29/17 05:12 ALT 79 Units/L (7-52) H 10/29/17 05:12 Alkaline Phosphatase 146 Units/L (34-104) H 10/29/17 05:12 Ammonia 34 mcmol/L (16-53) 10/28/17 01:25 Troponin I < 0.03 ng/mL (< 0.04) 10/28/17 01:25 Serum Total Protein 6.0 g/dL (6.4-8.9) L 10/29/17 05:12 Albumin 3.5 g/dL (3.5-5.7) 10/29/17 05:12 Globulin 2.5 g/dL (2.4-3.5) 10/29/17 05:12 Albumin/Globulin Ratio 1.4 (1.1-2.2) 10/29/17 05:12 Triglycerides 53 mg/dL (< 150) 10/29/17 05:12 Cholesterol 92 mg/dL (< 200) 10/29/17 05:12 LDL Cholesterol, Calc 63 mg/dL (0-99) 10/29/17 05:12 VLDL Cholesterol, Calc 11 mg/dL (< 31) 10/29/17 05:12 HDL Cholesterol 18 mg/dL (40-59) L 10/29/17 05:12 Cholesterol/HDL Ratio 5.1 (0-4.9) H 10/29/17 05:12 Lipase 15 Units/L (11-82) 10/28/17 01:25 Urine Color Dark Yellow (Yellow) 10/28/17 00:54 Urine Clarity Clear (Clear) 10/28/17 00:54 Urine pH 6.0 pH Units (5.0-8.0) 10/28/17 00:54 Ur Specific [place] 1.028 (1.010-1.025) H 10/28/17 00:54 Urine Protein 30 mg/dL (Neg-Trace) H 10/28/17 00:54 Urine Glucose (UA) Normal mg/dL (Normal) 10/28/17 00:54 Urine Ketones Negative mg/dL (Negative) 10/28/17 00:54 Urine Blood Negative (Negative) 10/28/17 00:54 Urine Nitrite Negative (Negative) 10/28/17 00:54 Urine Bilirubin Small (Negative) H 10/28/17 00:54 Urine Urobilinogen Normal mg/dL (Normal) 10/28/17 00:54 Ur Leukocyte Esterase Trace (Negative) H 10/28/17 00:54 Urine Microscopic RBC 3-5 per hpf (0-3) H 10/28/17 00:54 Urine Microscopic WBC 5-15 per hpf (0-3) H 10/28/17 00:54 Ur Squamous Epith Cells Many per lpf (None-Few) H 10/28/17 00:54 Urine Bacteria None Seen per hpf (None-Few) 10/28/17 00:54 Hyaline Casts None Seen per lpf (None-Few) 10/28/17 00:54 Ur Culture Indicated? NO. (NO) 10/28/17 00:54 Salicylates < 5.0 mg/dL (15.0-30.0) L 10/28/17 01:25 Urine Opiates Screen Negative ng/mL (Cbkpea=458) 10/28/17 00:52 Acetaminophen < 1.0 mcg/mL (10-30) L 10/28/17 01:25 Ur Barbiturates Screen Negative ng/mL (Znggvz=954) 10/28/17 00:52 Ur Phencyclidine Scrn Negative ng/mL (Cutoff=25) 10/28/17 00:52 Ur Amphetamines Screen Negative ng/mL (Mfhvwh=0929) 10/28/17 00:52 U Benzodiazepines Scrn Negative ng/mL (Ddvrru=774) 10/28/17 00:52 Urine Cocaine Screen Negative ng/mL (Cutoff= 300) 10/28/17 00:52 U Marijuana (THC) Screen Positive ng/mL (Cutoff = 50) H 10/28/17 00:52 Ethyl Alcohol < 10 mg/dL (0-10) 10/28/17 01:25 Consult Discharge Plan - Plan Referrals: Yon Montana [Primary Care Provider] -
--- NOTE | 2017-10-29 13:57 | Discharge Summary ---
Date of Encounter: 10/29/17 Time of Encounter: 13:00 - Discharge Diagnosis (1) Visual hallucinations Priority: Primary Status: Acute - Discharge Medications Home Medications: Albuterol Neb [AccuNeb] 1.25 mg IH QID 10/08/17 [History] Cyanocobalamin (B-12) [Vitamin B12] 1,000 mcg PO DAILY 10/08/17 [History] Folic Acid 1 mg PO DAILY 10/08/17 [History] Gabapentin [Neurontin] 100 mg PO TID 10/08/17 [History] Nitroglycerin [Nitrostat] 0.4 mg PO Q5M PRN 10/08/17 [History] clonazePAM [Clonazepam] 0.5 mg PO TID 10/08/17 [History] traZODone [TraZODone] 50 mg PO HS 10/08/17 [History] Acetaminophen [Non-Aspirin] 650 mg PO Q6H PRN 10/28/17 [History] Allopurinol [Zyloprim 100 MG] 100 mg PO BID 10/28/17 [History] Docusate [Colace] 100 mg PO BID 10/28/17 [History] Ipratropium/Albuterol Neb [Duoneb] 3 ml IH Q4HR PRN 10/28/17 [History] LevETIRAcetam [Keppra] 750 mg PO BID 10/28/17 [History] Magnesium Oxide [Magnesium] 400 mg PO DAILY 10/28/17 [History] Polyethylene Glycol 3350 [MiraLAX] 17 gm PO DAILY 10/28/17 [History] Sennosides [Senna] 8.6 mg PO BID 10/28/17 [History] Allergies/Adverse Reactions: 3 Allergy/AdvReac Type Severity Reaction Status Date / Time No Known Allergies Allergy Verified 10/08/17 12:10 Procedures/tests Complete & Pending: Procedures Performed prior 72 hours Category Date Time Status GB ultrasound [US gall bladder] [US] Routine Exams 10/28/17 09:00 Completed Date of admission: 10/28/17 04:31 Primary care physician: Yon Montana Consults: 10/28/17 04:38 Consult to Occupational Therapy [CONS] Routine Comment: Evaluate, develop and implement POC Reason for Consult: physical deconditioning 10/28/17 04:39 Consult to Physical Therapy [CONS] Routine Comment: Evaluate, develop and implement POC Reason for Consult: physical deconditioning 10/28/17 13:27 Consult to Psychiatry [CONS] Routine Consulting Provider: Surinder Tapia Reason for Consult: auditory hallucinations Time Notified: 13:27 Call Completed: Yes - Patient Status Disposition: Home, Self-Care Functional capacity at discharge: independent ambulation Overall status at discharge: patient is back to baseline - Discharge Instructions Follow Up With: Yon Montana [Primary Care Provider] - - Diet and Activity Activity: resume usual activities as tolerated Interval History: The patient Was placed in observation status on the MedSur floor he improved significantly as far as his hallucinations are concerned. Psychiatry was involved in his care and they believed that his infrequent hallucinations were a result of multiple recent brain traumas, CVA, meningitis etc. Not need any lumbar puncture or evaluation for an infectious process. He is at baseline and has been cleared from psychiatry standpoint to go home with close follow-up with his primary care physician He also ambulated in the hallway with nursing assistance and he did well Hospital course: Mr. Avery is a 36 year old male - Time Spent with Patient Total time spent providing and/or coordinating discharge services: Greater than 30 minutes - Constitutional Vitals: Temp Pulse Resp BP Pulse Ox 98.1 F 103 16 131/78 92 10/29/17 11:39 10/29/17 11:39 10/29/17 11:39 10/29/17 11:39 10/29/17 11:39 General appearance: Present: A&O X 1, answers questions appropriately Exam: General , Alert , oriented, HEENT- PERRLA. EOMI, post surgical scar seen on the scalp CVS- S1S2 N, No Murmurs, Rubs, gallops, No JVD RS- CTA Bilaterally. No rales no Rhonchi heard Abdomen- Soft NT ND, bowel sounds heard across all 4 quadrants Neuro- No Focal deficits appreciated, CN 2-12 intact, Motors- power 5/5 UE, 5/5 LE Bilaterally, Sensations intact Extremeties- no Clubbing/ edema/ wounds seen
[2017-10-29 16:04] VITALS: BP 124/61
[2017-10-29] MEDS: traZODone 50 MG TABLET PO SCH (21:22)
== END 2017-10-29 22:55 | disposition home or self-care (01) ==
LOC: EMEROO 00:32 → ICNU 00:32 → 3ANU 14:53
PROVIDERS: ADMIT Family Medicine; ATTEND Family Medicine

== ENCOUNTER 2019-03-02 12:09 | Inpatient (IN) ==
[2019-03-02] MEDS ORDERED: Pantoprazole 40 MG VIAL IVP ONE (12:12)
[2019-03-02] MEDS ORDERED: 0.9 % Sodium Chloride 1,000 ML IVC ONE (12:13)
--- NOTE | 2019-03-02 12:15 | Emergency Department Note ---
Disposition Clinical Impression: GI bleed Qualifiers: GI bleed type/associated pathology: melena Qualified Code(s): K92.1 - Melena Anemia Qualifiers: Anemia type: unspecified type Qualified Code(s): D64.9 - Anemia, unspecified Disposition: Admitted As Inpatient Condition: Critical Time of Disposition: 18:16 General Adult HPI - General Stated complaint: Neck back, black stool Time Seen by Provider: 03/02/19 12:11 Source: patient Mode of arrival: ambulatory Limitations: no limitations Nursing Notes Reviewed: Yes Vital Signs Reviewed: Yes - History of Present Illness HPI Narrative: Patient is a 38-year-old male presenting with melena stool. Patient with known history of endocarditis, currently on NOAC, HIV as well as hepatitis. Over the past 3 days, patient has had generalized weakness and fatigue with very dark tarry stools. No history of GI bleed or similar symptoms in the past. He does take ibuprofen daily. No history of peptic ulcer disease or perforation. He does state that today he fell hit his left side did not hit his head did not lose consciousness. He has no history of transfusions in the past. Patient states he does have generalized fatigue, shortness of breath and diffuse abdominal pain. No hematemesis. No hemoptysis. No hematuria. - Related Data Home Medications Medication Instructions Recorded Confirmed Albuterol Sulfate [Albuterol 2 puff IH Q4HR PRN 01/02/19 03/02/19 Inhaler] Allopurinol [Zyloprim 100 MG] 100 mg PO DAILY 01/02/19 03/02/19 Azelastine 0.1% Nasal [place] 1 spr NS DAILY PRN 01/02/19 03/02/19 [Astelin] Cyanocobalamin (Vitamin B-12) 1,000 mcg PO DAILY 01/02/19 03/02/19 [Vitamin B12] Fluconazole [Diflucan] 200 mg PO DAILY 01/02/19 03/02/19 Folic Acid 1 mg PO DAILY 01/02/19 03/02/19 Guaifenesin [Mucinex] 600 mg PO BID 01/02/19 03/02/19 Levothyroxine Sodium [Levoxyl] 25 mcg PO DAILY 01/02/19 03/02/19 Loratadine [Claritin] 10 mg PO DAILY 01/02/19 03/02/19 Magnesium Oxide [Magnesium] 400 mg PO DAILY 01/02/19 03/02/19 Methocarbamol [Robaxin] 500 mg PO Q8HR PRN 01/02/19 03/02/19 Nitroglycerin [Nitrostat] 0.4 mg SL Q5M PRN MDD [id number] CALL 01/02/19 03/02/19 911 Sertraline [Zoloft] 100 mg PO DAILY 01/02/19 03/02/19 Trazodone HCl 50 mg PO HS PRN 01/02/19 03/02/19 hydrALAZINE [HydrALAZINE] 10 mg PO Q8H 01/02/19 03/02/19 levETIRAcetam [Roweepra] 750 mg PO BID 01/02/19 03/02/19 Gabapentin [Neurontin] 100 mg PO TID 03/02/19 03/02/19 Allergies Allergy/AdvReac Type Severity Reaction Status Date / Time vancomycin Allergy See Verified 01/04/19 12:26 Comments All systems ED: reviewed and negative except as stated. Review of Systems: As Per HPI Constitutional: Reports: weakness. Denies: fever, chills ENT ED: Denies: congestion Cardiovascular: Reports: chest pain, palpitations, dyspnea on exertion. Denies: syncope Respiratory: Reports: dyspnea. Denies: cough, wheezes, hemoptysis, sputum production Gastrointestinal: Reports: abdominal pain, nausea, melena. Denies: vomiting, diarrhea, hematemesis, hematochezia Genitourinary: Denies: hematuria Integumentary: Denies: rash Neurological: Reports: weakness. Denies: headache, confusion Endocrine: Reports: fatigue Hematological/Lymphatic: Reports: easy bleeding, easy bruising Past Medical History - Past Medical History Medical history: Reports: CVA, other Surgical history: Reports: other Psychiatric history: Reports: other - Social History Smoking Status: Current every day smoker Smokeless Tobacco Status: No Alcohol use: Reports: none Drug use: Reports: opiates, marijuana, IV Drug Use Physical Exam - General Limitations: no limitations General appearance: alert, in distress - Head Head exam: atraumatic, normocephalic - Eye Eye exam: Present: PERRL, EOMI, other (Conjunctival pallor) - ENT ENT exam: normal exam, normal oropharynx, mucous membranes moist - Neck Neck exam: Present: normal inspection, full ROM, trachea midline - Chest Chest inspection: Present: normal inspection, symmetric chest wall rise - Respiratory Respiratory exam: Present: normal lung sounds bilaterally, other (To) - Cardiovascular Cardiovascular exam: Present: normal rhythm, tachycardia - Abdominal Exam Abdominal exam: Present: soft, tenderness (Diffuse tenderness throughout, without guarding or rebound, no distention) - Rectal Exam Bedspread Inspector present during exam: Yes Rectal exam: Present: heme (+) stool, black stool - Expanded Lower Extremity Exam Neurovascular/Tendon exam: Absent: motor deficit, sensory deficit, tendon deficit - Neurological Exam Neurological exam: Present: alert, oriented X3 - Psychiatric Psychiatric exam: Present: normal affect, anxious - Skin Skin exam: Present: warm, diaphoresis, pallor. Absent: rash, cyanosis Course - Consultations Consultation #1: Dr. Black coming to bedside. Spoke to him at 1315 Vital Signs Temperature 98.0 F 03/02/19 12:17 Pulse Rate 91 03/02/19 12:17 Respiratory Rate 22 03/02/19 12:17 Blood Pressure 90/31 03/02/19 12:17 O2 Sat by Pulse Oximetry 100 03/02/19 12:17 Temperature 96.6 F L 03/02/19 17:35 Pulse Rate 82 03/02/19 17:48 Respiratory Rate 20 03/02/19 17:48 Blood Pressure 86/46 03/02/19 17:48 O2 Sat by Pulse Oximetry 100 03/02/19 17:48 Oxygen Delivery Oxygen Delivery Room Air Medical Decision Making - Medical Records Medical records reviewed: Yes I reviewed the patient's medical records. - Lab Data Lab results reviewed: Yes I reviewed the patient's lab results. Result diagrams: 03/02/19 16:15 03/02/19 12:26 Lab Results 03/02/19 03/02/19 03/02/19 Range/Units 12:26 12:26 12:26 WBC 10.9 (4.3-11.1) K/mcL RBC 1.26 L (4.19-5.50) M/mcL Hgb 3.3 L* (12.9-16.9) g/dL Hct 11.5 L* (37.5-50.1) % MCV 91.3 (83.0-100.0) fL MCH 26.2 L (28.0-33.3) pg MCHC 28.7 L (31.6-35.5) g/dL RDW 18.6 H (11.5-14.5) % Plt Count 173 (140-400) K/mcL MPV 11.9 (9.4-12.4) fL Immature Gran % 0.7 (0-4) % Seg Neutrophils % 87.5 % Lymphocytes % 7.2 % Monocytes % 4.5 % Eosinophils % 0.1 % Basophils % 0.0 % Neutrophils # 9.5 H (1.6-8.9) K/mcL Lymphocytes # 0.8 (0.6-4.6) K/mcL Monocytes # 0.5 (0.0-1.3) K/mcL Eosinophils # 0.0 (0.0-0.6) K/mcL Basophils # 0.0 (0.0-0.2) K/mcL Platelet Estimate Normal (Normal) Polychromasia 2+ A (Not Present) Hypochromasia Present A (Not Present) Anisocytosis 1+ A (Not Present) PT 39.5 H (9.4-12.1) Seconds INR 3.5 APTT 29.7 (26.0-36.0) Seconds Sodium 142 (136-145) mEq/L Potassium 4.5 (3.5-5.1) mEq/L Chloride 114 H (98-107) mEq/L Carbon Dioxide 17 L (23-29) mEq/L BUN 89 H (6-20) mg/dL Creatinine 1.52 H (0.70-1.30) mg/dL Est GFR ( Amer) > 60 (> 60) Est GFR (Non-Af Amer) 52 L (> 60) BUN/Creatinine Ratio 59 H (6-26) Glucose 126 H (70-105) mg/dL Calculated Osmolality 323 H (280-300) Calcium 8.2 L (8.6-10.3) mg/dL Magnesium 2.2 (1.6-2.6) mg/dL Total Bilirubin 0.6 (0.3-1.0) mg/dL AST 19 (13-39) Units/L ALT 10 (7-52) Units/L Alkaline Phosphatase 74 (34-104) Units/L Serum Total Protein 4.8 L (6.4-8.9) g/dL Albumin 3.0 L (3.5-5.7) g/dL Globulin 1.8 L (2.4-3.5) g/dL Albumin/Globulin Ratio 1.7 (1.1-2.2) Stool Occult Bld Scrn (Negative) Blood Type Antibody Screen Crossmatch 03/02/19 03/02/19 Range/Units 12:26 12:43 WBC (4.3-11.1) K/mcL RBC (4.19-5.50) M/mcL Hgb (12.9-16.9) g/dL Hct (37.5-50.1) % MCV (83.0-100.0) fL MCH (28.0-33.3) pg MCHC (31.6-35.5) g/dL RDW (11.5-14.5) % Plt Count (140-400) K/mcL MPV (9.4-12.4) fL Immature Gran % (0-4) % Seg Neutrophils % % Lymphocytes % % Monocytes % % Eosinophils % % Basophils % % Neutrophils # (1.6-8.9) K/mcL Lymphocytes # (0.6-4.6) K/mcL Monocytes # (0.0-1.3) K/mcL Eosinophils # (0.0-0.6) K/mcL Basophils # (0.0-0.2) K/mcL Platelet Estimate (Normal) Polychromasia (Not Present) Hypochromasia (Not Present) Anisocytosis (Not Present) PT (9.4-12.1) Seconds INR APTT (26.0-36.0) Seconds Sodium (136-145) mEq/L Potassium (3.5-5.1) mEq/L Chloride (98-107) mEq/L Carbon Dioxide (23-29) mEq/L BUN (6-20) mg/dL Creatinine (0.70-1.30) mg/dL Est GFR ( Amer) (> 60) Est GFR (Non-Af Amer) (> 60) BUN/Creatinine Ratio (6-26) Glucose (70-105) mg/dL Calculated Osmolality (280-300) Calcium (8.6-10.3) mg/dL Magnesium (1.6-2.6) mg/dL Total Bilirubin (0.3-1.0) mg/dL AST (13-39) Units/L ALT (7-52) Units/L Alkaline Phosphatase (34-104) Units/L Serum Total Protein (6.4-8.9) g/dL Albumin (3.5-5.7) g/dL Globulin (2.4-3.5) g/dL Albumin/Globulin Ratio (1.1-2.2) Stool Occult Bld Scrn Positive A (Negative) Blood Type O POSITIVE Antibody Screen NEGATIVE Crossmatch See Detail - Radiology Data Radiology results reviewed: Yes I reviewed the patient's radiology results. - EKG Data EKG #1 EKG attestation: Yes I reviewed and interpreted this EKG. EKG results narrative: EKG obtained at 1223 with ventricular rate of 90, regular rhythm, normal axis, there is diffuse ST segment elevation, without ST elevation. Also appears to be prolonged QT interval with a QTC of 518. The changes are new since EKG that was performed and 01/02/2019. Critical Care Time Critical Care Time: Yes Total Critical Care Time: 60 Attestation: The high probability of a clinically significant, sudden or life threatening deterioration of the [] system(s) required my full and direct attention, intervention and personal management. The aggregate critical care time was [] minutes. This time is in addition to time spent performing reported procedures but includes the following: [] Data Review and interpretation [] Patient assessment and monitoring of vital signs [] Documentation [] Medication orders and management Attestation Statement - Attestation Attestation: I reviewed the residents documentation and agree with the residents assessment and plan of care. I have personally had face to face time with the patient. (Brief History, Brief Exam, and MDM) I personally supervised and was present for the land/critical portions of the following procedures completed by the resident: (add procedures performed here). [id number] time provided Patient arrives from home complaining of dark tarry stools. He currently takes a novel anticoagulant for endocarditis. He appears pale on exam. Concern for upper GI bleed. I attest to supervising the resident physician's interpretation of the ECG I attest to supervising the resident physician's placement of the triple lumen central venous catheter
--- NOTE | 2019-03-02 12:39 | Emergency Department Note ---
Disposition Clinical Impression: GI bleed Qualifiers: GI bleed type/associated pathology: melena Qualified Code(s): K92.1 - Melena Disposition: Admitted As Inpatient Condition: Critical Time of Disposition: 15:37 General Adult HPI - General Chief complaint: ED GI Bleed Stated complaint: Black Stool, weakness Time Seen by Provider: 03/02/19 12:11 Source: patient Limitations: no limitations Nursing Notes Reviewed: Yes Vital Signs Reviewed: Yes - History of Present Illness HPI Narrative: Patient is a 38-year-old male presenting with melena stool. Patient with known history of endocarditis, currently on NOAC, per family possible HIV as well as hepatitis C. Known history of IVDU. Over the past 3 days, patient has had generalized weakness and fatigue with very dark tarry stools. No history of GI bleed or similar symptoms in the past. He does take ibuprofen daily. No history of peptic ulcer disease or perforation. He does state that today he fell hit his left side did not hit his head did not lose consciousness. He has no history of transfusions in the past. Patient states he does have generalized fatigue, shortness of breath and diffuse abdominal pain. No hematemesis. No hemoptysis. No hematuria. Pain Scale: 5 - Related Data Home Medications Medication Instructions Recorded Confirmed Albuterol Sulfate [Albuterol 2 puff IH Q4HR PRN 01/02/19 01/02/19 Inhaler] Allopurinol [Zyloprim 100 MG] 100 mg PO DAILY 01/02/19 01/02/19 Azelastine 0.1% Nasal [place] 1 spr NS DAILY PRN 01/02/19 01/02/19 [Astelin] Cyanocobalamin (Vitamin B-12) 1,000 mcg PO DAILY 01/02/19 01/03/19 [Vitamin B12] Fluconazole [Diflucan] 200 mg PO DAILY 01/02/19 01/02/19 Folic Acid 1 mg PO DAILY 01/02/19 01/03/19 Guaifenesin [Mucinex] 600 mg PO BID 01/02/19 01/02/19 Ibuprofen [Ibu] 800 mg PO Q8H PRN 01/02/19 01/02/19 Levothyroxine Sodium [Levoxyl] 25 mcg PO DAILY 01/02/19 01/02/19 Loratadine [Claritin] 10 mg PO DAILY 01/02/19 01/02/19 Magnesium Oxide [Magnesium] 400 mg PO DAILY 01/02/19 01/02/19 Methocarbamol [Robaxin] 500 mg PO Q8HR 01/02/19 01/02/19 Nitroglycerin [Nitrostat] 0.4 mg SL Q5M PRN MDD [id number] CALL 01/02/19 01/02/19 911 Rivaroxaban [Xarelto] 20 mg PO QPM 01/02/19 01/02/19 Sertraline [Zoloft] 100 mg PO DAILY 01/02/19 01/02/19 Trazodone HCl 50 mg PO HS 01/02/19 01/02/19 hydrALAZINE [HydrALAZINE] 10 mg PO Q8H 01/02/19 01/02/19 levETIRAcetam [Roweepra] 750 mg PO BID 01/02/19 01/02/19 Gabapentin [Neurontin] 100 mg PO TID 03/02/19 03/02/19 Allergies Allergy/AdvReac Type Severity Reaction Status Date / Time vancomycin Allergy See Verified 01/04/19 12:26 Comments All systems ED: reviewed and negative except as stated. Review of Systems: As Per HPI Constitutional: Denies: fever, chills ENT ED: Denies: congestion Cardiovascular: Reports: palpitations, dyspnea on exertion. Denies: chest pain, syncope Respiratory: Reports: dyspnea. Denies: cough, wheezes, hemoptysis Gastrointestinal: Reports: abdominal pain, nausea, melena. Denies: vomiting, diarrhea, hematemesis, hematochezia Genitourinary: Denies: dysuria, hematuria Musculoskeletal: Denies: back pain Integumentary: Denies: rash Neurological: Reports: weakness. Denies: headache, numbness, confusion Psychiatric: Denies: anxiety Endocrine: Reports: fatigue Hematological/Lymphatic: Reports: easy bleeding, easy bruising Past Medical History - Past Medical History Medical history: Reports: CVA, hepatitis, liver disease, other Surgical history: Reports: other Psychiatric history: Reports: other - Social History Smoking Status: Current every day smoker Smokeless Tobacco Status: No Alcohol use: Reports: none Drug use: Reports: opiates, marijuana, IV Drug Use Physical Exam - General Limitations: no limitations General appearance: alert, in distress - Head Head exam: atraumatic, normocephalic - Eye Eye exam: Present: PERRL, EOMI, other (Conjunctival pallor) - ENT ENT exam: normal exam, normal oropharynx, mucous membranes moist - Neck Neck exam: Present: normal inspection, full ROM, trachea midline - Chest Chest inspection: Present: normal inspection, symmetric chest wall rise - Respiratory Respiratory exam: Present: normal lung sounds bilaterally, other (To) - Cardiovascular Cardiovascular exam: Present: normal rhythm, tachycardia - Abdominal Exam Abdominal exam: Present: soft, tenderness (Diffuse tenderness throughout, without guarding or rebound, no distention) - Rectal Exam Saw Maker present during exam: Yes Rectal exam: Present: heme (+) stool, black stool - Expanded Lower Extremity Exam Neurovascular/Tendon exam: Absent: motor deficit, sensory deficit, tendon deficit - Neurological Exam Neurological exam: Present: alert, oriented X3 - Psychiatric Psychiatric exam: Present: normal affect, anxious - Skin Skin exam: Present: warm, diaphoresis, pallor. Absent: rash, cyanosis - General Limitations: no limitations General appearance: alert, in no apparent distress Course Vital Signs Temperature 98.0 F 03/02/19 12:17 Pulse Rate 91 03/02/19 12:17 Respiratory Rate 22 03/02/19 12:17 Blood Pressure 90/31 03/02/19 12:17 O2 Sat by Pulse Oximetry 100 03/02/19 12:17 Temperature 98.0 F 03/02/19 12:17 Pulse Rate 81 03/02/19 14:36 Respiratory Rate 22 03/02/19 14:36 Blood Pressure 85/27 03/02/19 14:36 O2 Sat by Pulse Oximetry 100 03/02/19 14:36 Oxygen Delivery Oxygen Delivery Room Air Procedures - Central Line Placement Right IJ Central Line Inserted*: Yes Central Line Insertion: emergent Consent Obtained: verbal consent Procedural Pause: verify patient name and date of , timeout performed per policy, bakari and assess the site, assemble equipment and verify supplies Patient Placed on Monitor/Pulse Ox: Yes During the Procedure: clinician is wearing sterile gloves, cap, mask,& gown during insertion, sterile field and sterile technique are maintained, patient's face is covered with drape or mask and wearing a cap, everyone in room is wearing a mask Central Line Prep: Chlorhexidine scrub, sterile drapes applied Prep the Procedure Site: apply chloraprep to the skin using a back and forth scrubbing motion Local Anesthetic: lidocaine 1% Amount of anesthesia used (mL): 2 Ultrasound Used for Placement: Yes Central Line Lumen Inserted: triple Post Procedure: sutured in place, good blood return, all ports aspirated, flushed, capped, sterile dressing applied, guide wire removed and visualized, dressing is dated Post Procedure X-Ray: tip of catheter in good position Patient Tolerated Procedure: well, no complications Complications: none Name of Clinician Inserting Central Line: Dr. Mcnally Clinician Assisting/Completing Checklist: Dr. Sequeira Date: 03/02/19 Time: 14:20 Medical Decision Making - [facility] Narrative Medical decision making narrative: Patient is a 38-year-old male who is brought in for fatigue. On examination, patient has significant pallor with tachypnea and tachycardia. His blood pressure is significantly hypotensive with a systolic blood pressure of 80 with a map less than 45. Patient states that he has been having melena stools for the past few days. Stool Hemoccult at bedside was performed, came back as positive. Patient was initially started on normal saline fluids. Blood work was performed with consideration for acute GI bleed. Patient with known history of hepatitis, reported HIV without known variceal bleed in the past. Patient also has been taking ibuprofen 4 times per day for the past month. Transfusion protocol was initiated with 2 units ordered prior to result of hemoglobin. Hemoglobin is also at home which showed it to be 3.3, 3 further PRBC units were ordered. INR was noted to be at 3.5, 1 unit of FFP was ordered. I did speak with blood bank regarding initiating transfusion without type and screen. They are aware and understanding. Protonix and octreotide ordered. Patient's blood pressure continued to be hypotensive despite resuscitation with 1-2 units of PRBCs, a central line was placed without difficulty. I also spoke with GI nurse practitioner, Wayne, he states that they will be down to evaluate the patient immediately. Upon their evaluation, central line was being placed, they state that they will be take the patient for scoping immediately. I also spoke with the gem stone cutter, Dr. Diaz who has accepted the patient following GI scope. He is aware of the patient's he will instability at this time. Blood work reveals patient to be significantly anemic with suspected source of GI bleed. Patient also noted to have acute kidney injury with an elevated serum creatinine. Given patient's PT/INR as well as continued GI bleed and continued hemodynamic instability, TXA was ordered and given to the patient. At this time, patient has been taken to the OR by GI for scoping. - Medical Records Medical records reviewed: Yes I reviewed the patient's medical records. - Lab Data Lab results reviewed: Yes I reviewed the patient's lab results. Result diagrams: 03/02/19 12:26 03/02/19 12: Lab Results 03/02/19 03/02/19 03/02/19 Range/Units 12:26 12:26 12:26 WBC 10.9 (4.3-11.1) K/mcL RBC 1.26 L (4.19-5.50) M/mcL Hgb 3.3 L* (12.9-16.9) g/dL Hct 11.5 L* (37.5-50.1) % MCV 91.3 (83.0-100.0) fL MCH 26.2 L (28.0-33.3) pg MCHC 28.7 L (31.6-35.5) g/dL RDW 18.6 H (11.5-14.5) % Plt Count 173 (140-400) K/mcL MPV 11.9 (9.4-12.4) fL Immature Gran % 0.7 (0-4) % Seg Neutrophils % 87.5 % Lymphocytes % 7.2 % Monocytes % 4.5 % Eosinophils % 0.1 % Basophils % 0.0 % Neutrophils # 9.5 H (1.6-8.9) K/mcL Lymphocytes # 0.8 (0.6-4.6) K/mcL Monocytes # 0.5 (0.0-1.3) K/mcL Eosinophils # 0.0 (0.0-0.6) K/mcL Basophils # 0.0 (0.0-0.2) K/mcL Platelet Estimate Normal (Normal) Polychromasia 2+ A (Not Present) Hypochromasia Present A (Not Present) Anisocytosis 1+ A (Not Present) PT 39.5 H (9.4-12.1) Seconds INR 3.5 APTT 29.7 (26.0-36.0) Seconds Sodium 142 (136-145) mEq/L Potassium 4.5 (3.5-5.1) mEq/L Chloride 114 H (98-107) mEq/L Carbon Dioxide 17 L (23-29) mEq/L BUN 89 H (6-20) mg/dL Creatinine 1.52 H (0.70-1.30) mg/dL Est GFR ( Amer) > 60 (> 60) Est GFR (Non-Af Amer) 52 L (> 60) BUN/Creatinine Ratio 59 H (6-26) Glucose 126 H (70-105) mg/dL Calculated Osmolality 323 H (280-300) Calcium 8.2 L (8.6-10.3) mg/dL Total Bilirubin 0.6 (0.3-1.0) mg/dL AST 19 (13-39) Units/L ALT 10 (7-52) Units/L Alkaline Phosphatase 74 (34-104) Units/L Serum Total Protein 4.8 L (6.4-8.9) g/dL Albumin 3.0 L (3.5-5.7) g/dL Globulin 1.8 L (2.4-3.5) g/dL Albumin/Globulin Ratio 1.7 (1.1-2.2) Stool Occult Bld Scrn (Negative) Blood Type Antibody Screen Crossmatch 03/02/19 03/02/19 Range/Units 12:26 12:43 WBC (4.3-11.1) K/mcL RBC (4.19-5.50) M/mcL Hgb (12.9-16.9) g/dL Hct (37.5-50.1) % MCV (83.0-100.0) fL MCH (28.0-33.3) pg MCHC (31.6-35.5) g/dL RDW (11.5-14.5) % Plt Count (140-400) K/mcL MPV (9.4-12.4) fL Immature Gran % (0-4) % Seg Neutrophils % % Lymphocytes % % Monocytes % % Eosinophils % % Basophils % % Neutrophils # (1.6-8.9) K/mcL Lymphocytes # (0.6-4.6) K/mcL Monocytes # (0.0-1.3) K/mcL Eosinophils # (0.0-0.6) K/mcL Basophils # (0.0-0.2) K/mcL Platelet Estimate (Normal) Polychromasia (Not Present) Hypochromasia (Not Present) Anisocytosis (Not Present) PT (9.4-12.1) Seconds INR APTT (26.0-36.0) Seconds Sodium (136-145) mEq/L Potassium (3.5-5.1) mEq/L Chloride (98-107) mEq/L Carbon Dioxide (23-29) mEq/L BUN (6-20) mg/dL Creatinine (0.70-1.30) mg/dL Est GFR ( Amer) (> 60) Est GFR (Non-Af Amer) (> 60) BUN/Creatinine Ratio (6-26) Glucose (70-105) mg/dL Calculated Osmolality (280-300) Calcium (8.6-10.3) mg/dL Total Bilirubin (0.3-1.0) mg/dL AST (13-39) Units/L ALT (7-52) Units/L Alkaline Phosphatase (34-104) Units/L Serum Total Protein (6.4-8.9) g/dL Albumin (3.5-5.7) g/dL Globulin (2.4-3.5) g/dL Albumin/Globulin Ratio (1.1-2.2) Stool Occult Bld Scrn Positive A (Negative) Blood Type O POSITIVE Antibody Screen NEGATIVE Crossmatch See Detail - Radiology Data Radiology results reviewed: Yes I reviewed the patient's radiology results. - EKG Data EKG #1 EKG attestation: Yes I reviewed and interpreted this EKG.
[2019-03-02 13:00] LABS: INR 3.5; Prothrombin Time 39.5 Seconds (9.4-12.1)
[2019-03-02 13:02] LABS: Activated Partial Thrombo Time 29.7 Seconds (26.0-36.0)
[2019-03-02 13:05] LABS: Alanine Aminotransferase 10 Units/L (7-52); Albumin/Globulin Ratio 1.7 (1.1-2.2); Alkaline Phosphatase 74 Units/L (34-104); Aspartate Amino Transferase 19 Units/L (13-39); BUN/Creatinine Ratio 59 (6-26); Bilirubin,Total 0.6 mg/dL (0.3-1.0); Blood Urea Nitrogen 89 mg/dL (6-20); Calcium 8.2 mg/dL (8.6-10.3); Carbon Dioxide 17 mEq/L (23-29); Chloride 114 mEq/L (98-107); Globulin 1.8 g/dL (2.4-3.5); Glucose 126 mg/dL (70-105); Osmolality,Calculated 323 (280-300); Potassium 4.5 mEq/L (3.5-5.1); Sodium 142 mEq/L (136-145); Total Protein 4.8 g/dL (6.4-8.9); eGFR For African Americans > 60 (> 60); eGFR For Non-African Americans 52 (> 60)
[2019-03-02 13:06] LABS: Eosinophils % 0.1 %; Immature Granulocytes % 0.7 % (0-4); Lymphocytes # 0.8 K/mcL (0.6-4.6); Lymphocytes % 7.2 %; Mean Corpuscular HGB Conc 28.7 g/dL (31.6-35.5); Mean Corpuscular Hemoglobin 26.2 pg (28.0-33.3); Mean Corpuscular Volume 91.3 fL (83.0-100.0); Mean Platelet Volume 11.9 fL (9.4-12.4); Monocytes # 0.5 K/mcL (0.0-1.3); Monocytes % 4.5 %; Neutrophils # 9.5 K/mcL (1.6-8.9); Platelet Count 173 K/mcL (140-400); Red Blood Count 1.26 M/mcL (4.19-5.50); Red Cell Distribution Width 18.6 % (11.5-14.5); Segmented Neutrophils % 87.5 %; White Blood Count 10.9 K/mcL (4.3-11.1)
[2019-03-02 13:09] LABS: Hematocrit 11.5 % (37.5-50.1); Hemoglobin 3.3 g/dL (12.9-16.9)
[2019-03-02] MEDS ORDERED: 0.9 % Sodium Chloride 250 ML ONE ×3 (13:13→17:42)
[2019-03-02] MEDS ORDERED: 0.9 % Sodium Chloride 1,000 ML ONE (13:13)
[2019-03-02 13:34] LABS: Anisocytosis 1+ (Not Present); Hypochromasia Present (Not Present); Platelet Estimate Normal (Normal)
[2019-03-02 13:35] LABS: Polychromasia 2+ (Not Present)
[2019-03-02] MEDS ORDERED: Octreotide 400 MCG in 0.9 % Sodium Chloride 100 ML IVC SCH (14:00)
[2019-03-02] MEDS ORDERED: 0.9 % Sodium Chloride 500 ML ONE (14:07)
--- NOTE | 2019-03-02 14:30 | Pulmonology History & Physical ---
<Jason Monge S - Last Filed: 03/02/19 16:20> Date of Encounter: 03/02/19 Time of Encounter: 15:43 Assessment and Plan (1) GI bleed Current visit: Yes Status: Acute Pt presenting with acute blood loss anemia of unknown source - reported episodes of melena x 3-4 days On Xarelto after last episode of IE with severe aortic regurgitation ECHO from December admission evidenced: LVEF 55%. Severely dilated left ventricle. Calcification/thickening remains between the right and non-coronary cusps. Turbulent aortic regurgitation, which complicates analysis. Severe pulmonary hypertension. Estimated RVSP is >70 mmHg. XR from admission negative for acute abnormality GI consulted from the ER and pt brought to the OR, however, anestheiologist didn't feel it was safe given the pt with severe AR, widened PP, valvular vegetations/califications and pHTN - decision to made to contact [facility] for potential transfer, awaiting to hear if pt is accepted - pt recommended by Dr. Simon Monge to have AV replacement at [facility], pt is known to [facility] Initial hemoglobin 3.3, hct 11.5 with normal platelet level MCV normal, likely this is an acute bleed Plan: - gentle fluid hydration to avoid volume overload - repeat H&H STAT, then q6hr - transfuse as needed, attempt to keep Hgb around 9-10 - GI consulted, recommends continuing protonix and octreotide drips - recommend that the pt is stabilized in the ICU, if he decompensates acutely anesthesia and GI on board for acute intervention - NPO diet - DVT prophylaxis: SCD - dispo: pending transfer Qualifiers: GI bleed type/associated pathology: melena Qualified Code(s): K92.1 - Melena (2) Supratherapeutic INR Current visit: Yes Status: Acute Likely secondary to hx of cirrhosis, evidenced by imaging. INR on admission 3.2 Pt given 3 units of FFP Will continue to monitor PT/INR with AM labs if not transferred. (3) HIV (human immunodeficiency virus infection) Current visit: No Status: Chronic Chronic. No recorded CD4+ on record. Pt will need outpatient follow up. Qualifiers: HIV symptom status: unspecified Qualified Code(s): B20 - Human immunodeficiency virus [HIV] disease (4) CHF (congestive heart failure) Current visit: No Status: Chronic Not currently in acute exacerbation. ECHO from December: Impressions: LVEF 55%. Severely dilated left ventricle. Normal wall thickness and function. Mildly dilated right ventricle with normal function. Aortic valve not well visualized. Calcification/thickening remains between the right and non-coronary cusps. Turbulent aortic regurgitation, which complicates analysis. Severe by Doppler analysis, pressure half time. Mild aortic stenosis. Mean gradient 15 mmHg. Mild tricuspid regurgitation. Severe pulmonary hypertension. Estimated RVSP is >70 mmHg Patient is very high risk for complication, will continue to closely monitor and avoid fluid overloading the pt. Qualifiers: Heart failure type: diastolic Heart failure chronicity: acute on chronic Qualified Code(s): I50.33 - Acute on chronic diastolic (congestive) heart failure (5) DVT prophylaxis Current visit: Yes Status: Acute scd (6) History of hepatitis C Current visit: No Status: Chronic Chronic. Needs outpatient workup. (7) IV drug abuse Current visit: No Status: Chronic Chronic. Hx of IVDU, multiple complications from drugs. (8) Severe aortic regurgitation Current visit: No Status: Acute Evidenced on ECHO from previous visit. Needs workup at tertiary care center. (9) Tobacco dependence Current visit: No Status: Chronic Will offer NRT if pt has cravings. History of Present Illness Chief complaint: anemia HPI: Mr. Avery is a 38 year old male with PMH of IVDU, IE, severe aortic regurgitation, HIV, hepatitis C and HIV. He is coming to the hospital today with the chief complaint of melena and black, tarry stool. He has a known hx of previous episodes of IE, recently admitted to [facility] for IE and found to have an ECHO revealing a LVEF of 55% and severe AR with valvular calcifications. He was started on a NOAC rivaroxaban. He has had increasing weakness and fatigue, with very dark tarry stools. He has never had this happen before. He denies chest pain, SOB, hemoptysis, hematemesis, hematuria. He is quite lethargic at the bedside. He denies any PUD hx but does use ibuprofen daily. He did report hitting his head without LOC. CT head was negative in the ER. He was found to have a hemo blogin of 3.3 at admission. His INR was supratheraputic. He was given 5 units of pRBC and 3 units of FFP. He was brought to the OR for colonoscopy and EGD, however, the pt was determined to be too high risk by anesthesia. Protonix and octreotide drips continued. He was given one dose of TXA. Attempted to transfer to [facility]. Transfer pending repeat labs. See discharge summary for further details. Past Med Surg Social Fam HX - Past Medical History Medical history: CVA, hepatitis, liver disease, other Additional medical history: septicemia, meningitis, heart failure Psychiatric history: other - Past Surgical History Surgical History: other Additional surgical history: right hand surgery. - Social History Smoking Status: Current every day smoker Smokeless Tobacco Status: No Alcohol use: none Drug use: opiates, marijuana, IV Drug Use Medications and Allergies Albuterol Sulfate [Albuterol Inhaler] 2 puff IH Q4HR PRN 01/02/19 [History] Allopurinol [Zyloprim 100 MG] 100 mg PO DAILY 01/02/19 [History] Azelastine 0.1% Nasal [place] [Astelin] 1 spr NS DAILY PRN 01/02/19 [History] Cyanocobalamin (Vitamin B-12) [Vitamin B12] 1,000 mcg PO DAILY 01/02/19 [History] Fluconazole [Diflucan] 200 mg PO DAILY 01/02/19 [History] Folic Acid 1 mg PO DAILY 01/02/19 [History] Guaifenesin [Mucinex] 600 mg PO BID 01/02/19 [History] Levothyroxine Sodium [Levoxyl] 25 mcg PO DAILY 01/02/19 [History] Loratadine [Claritin] 10 mg PO DAILY 01/02/19 [History] Magnesium Oxide [Magnesium] 400 mg PO DAILY 01/02/19 [History] Methocarbamol [Robaxin] 500 mg PO Q8HR PRN 01/02/19 [History] Nitroglycerin [Nitrostat] 0.4 mg SL Q5M PRN MDD [id number] CALL 911 01/02/19 [History] Sertraline [Zoloft] 100 mg PO DAILY 01/02/19 [History] Trazodone HCl 50 mg PO HS PRN 01/02/19 [History] hydrALAZINE [HydrALAZINE] 10 mg PO Q8H 01/02/19 [History] levETIRAcetam [Roweepra] 750 mg PO BID 01/02/19 [History] Gabapentin [Neurontin] 100 mg PO TID 03/02/19 [History] Allergy/AdvReac Type Severity Reaction Status Date / Time vancomycin Allergy See Verified 01/04/19 12:26 Comments All Systems: The remainder of the systems were reviewed and are negative - Constitutional Constitutional: fatigue, lethargy - Cardiovascular Cardiovascular: dyspnea, dyspnea on exertion, no chest pain - Respiratory Respiratory: dyspnea, dyspnea on exertion, no hemoptysis - Gastrointestinal Gastrointestinal: melena, nausea, no hematochezia, no vomiting - Genitourinary Genitourinary: no hematuria - Musculoskeletal Musculoskeletal: back pain, neck pain - Integumentary Integumentary: no erythema - Neurological Neurological: weakness, no numbness, no tingling - Psychiatric Psychiatric: anxiety, depression - Endocrine Endocrine: fatigue - Hematologic/Lymphatic Hematologic/Lymphatic: easy bleeding, no easy bruising Physical Examination Vital Signs: Vital Signs, Last 4 Hours Temp Pulse Resp BP Pulse Ox 03/02/19 14:15 79 22 86/29 100 03/02/19 14:04 76 24 82/38 100 03/02/19 13:57 79 24 100 03/02/19 13:45 78 22 76/43 100 03/02/19 13:26 83 22 82/20 100 03/02/19 13:15 85 22 78/54 100 03/02/19 13:00 95 22 93/81 100 03/02/19 12:45 91 22 87/68 100 03/02/19 12:30 90 22 90/32 100 03/02/19 12:17 98.0 F 91 22 90/31 100 General appearance: lethargic, agitated, appears uncomfortable Eyes: icteric ENT: oropharynx dry Effort: mildly labored Auscultation: bilateral: diminished breath sounds Cardiovascular: regular rate and rhythm, murmur noted Gastrointestinal: soft, non-tender, non-distended Integumentary: normal Extremities: no edema, no clubbing, pink and warm, pulses normal Musculoskeletal: no deformities unable to assess due to mental status other (unable to assess) Results - Laboratory Findings CBC and BMP: 03/02/19 12:26 03/02/19 12:26 PT/INR, D-dimer PT 39.5 Seconds (9.4-12.1) H 03/02/19 12:26 Abnormal lab findings: Abnormal lab results RBC 1.26 M/mcL (4.19-5.50) L 03/02/19 12:26 Hgb 3.3 g/dL (12.9-16.9) L* 03/02/19 12: Hct 11.5 % (37.5-50.1) L* 03/02/19 12: MCH 26.2 pg (28.0-33.3) L 03/02/19 12: MCHC 28.7 g/dL (31.6-35.5) L 03/02/19 12: RDW 18.6 % (11.5-14.5) H 03/02/19 12: 9.5 K/mcL (1.6-8.9) H 03/02/19 12: 2+ (Not Present) A 03/02/19 12:26 Present (Not Present) A 03/02/19 12: 1+ (Not Present) A 03/02/19 12: PT 39.5 Seconds (9.4-12.1) H 03/02/19 12: Chloride 114 mEq/L (98-107) H 03/02/19 12:26 Carbon Dioxide 17 mEq/L (23-29) L 03/02/19 12: BUN 89 mg/dL (6-20) H 03/02/19 12:26 1.52 mg/dL (0.70-1.30) H 03/02/19 12:26 Est GFR (Non-Af Amer) 52 (> 60) L 03/02/19 12:26 59 (6-26) H 03/02/19 12: Glucose 126 mg/dL (70-105) H 03/02/19 12:26 323 (280-300) H 03/02/19 12:26 Calcium 8.2 mg/dL (8.6-10.3) L 03/02/19 12:26 4.8 g/dL (6.4-8.9) L 03/02/19 12:26 3.0 g/dL (3.5-5.7) L 03/02/19 12:26 1.8 g/dL (2.4-3.5) L 03/02/19 12:26 Stool Occult Bld Scrn Positive (Negative) A 03/02/19 12:43 Crossmatch See Detail 03/02/19 12:26 <Sergey Parsons S - Last Filed: 03/02/19 19:12> Date of Encounter: 03/02/19 History of Present Illness HPI: Mr. Avery is a 38 year old male All Systems: The remainder of the systems were reviewed and are negative Physical Examination Vital Signs: Vital Signs, Last 4 Hours Temp Pulse Resp BP Pulse Ox 03/02/19 18:39 82 20 93/45 100 03/02/19 17:50 97.3 F L 82 20 102/49 99 03/02/19 17:48 82 20 86/46 100 03/02/19 17:35 96.6 F L 81 20 88/38 03/02/19 17:05 80 16 93/52 97 03/02/19 17:00 78 18 84/37 97 03/02/19 16:35 78 16 84/34 98 03/02/19 16:12 97.2 F L 78 18 87/32 99 Results - Laboratory Findings CBC and BMP: 03/02/19 16:15 03/02/19 12:26 ABG ABG pH 7.41 pH Units (7.32-7.45) 03/02/19 16:35 ABG pCO2 27 mmHg (35-45) L 03/02/19 16:35 ABG pO2 81 mmHg (85-104) L 03/02/19 16:35 ABG O2 Saturation 96 % (95-98) 03/02/19 16:35 PT/INR, D-dimer PT 39.5 Seconds (9.4-12.1) H 03/02/19 12:26 Abnormal lab findings: Abnormal lab results RBC 1.26 M/mcL (4.19-5.50) L 03/02/19 12:26 Hgb 6.8 g/dL (12.9-16.9) L D 03/02/19 16:15 Hct 21.1 % (37.5-50.1) L 03/02/19 16:15 MCH 26.2 pg (28.0-33.3) L 03/02/19 12:26 MCHC 28.7 g/dL (31.6-35.5) L 03/02/19 12:26 RDW 18.6 % (11.5-14.5) H 03/02/19 12:26 9.5 K/mcL (1.6-8.9) H 03/02/19 12:26 2+ (Not Present) A 03/02/19 12:26 Present (Not Present) A 03/02/19 12: 1+ (Not Present) A 03/02/19 12: PT 39.5 Seconds (9.4-12.1) H 03/02/19 12:26 ABG pCO2 27 mmHg (35-45) L 03/02/19 16:35 ABG pO2 81 mmHg (85-104) L 03/02/19 16:35 ABG HCO3 17 mEq/L (21-27) L 03/02/19 16:35 ABG Total CO2 18 mEq/L (20-26) L 03/02/19 16:35 ABG Base Excess -7 mEq/L (-2 to 3) L 03/02/19 16:35 Chloride 114 mEq/L (98-107) H 03/02/19 12:26 Carbon Dioxide 17 mEq/L (23-29) L 03/02/19 12:26 BUN 89 mg/dL (6-20) H 03/02/19 12:26 1.52 mg/dL (0.70-1.30) H 03/02/19 12:26 Est GFR (Non-Af Amer) 52 (> 60) L 03/02/19 12:26 59 (6-26) H 03/02/19 12:26 Glucose 126 mg/dL (70-105) H 03/02/19 12:26 POC Glucose 169 mg/dL (70-99) H 03/02/19 16:16 323 (280-300) H 03/02/19 12:26 Calcium 8.2 mg/dL (8.6-10.3) L 03/02/19 12:26 4.8 g/dL (6.4-8.9) L 03/02/19 12:26 3.0 g/dL (3.5-5.7) L 03/02/19 12:26 1.8 g/dL (2.4-3.5) L 03/02/19 12:26 Stool Occult Bld Scrn Positive (Negative) A 03/02/19 12:43 Crossmatch See Detail 03/02/19 12:26 - Attending Attestation I saw and evaluated this patient and my medical decision-making was reviewed with the Resident Physician. I agree with the documented findings, disposition and treatment plan as described except to the extent set forth below. We independently had [id number] contact with the patient I spent 45 minutes of Critical Care time with this patient. It involved decision making of high complexity to assess, manipulate, and support vital organ system failure and/or to prevent further life threatening deterioration of the patient's condition. The time involved in the performance of separately reportable procedures was not counted toward critical care time. Patient seen and examined at bedside Labs, radiology, chart personally reviewed. Management was reviewed during multidisciplinary critical care rounds. [employer]: Patient is conscious little bit lethargic follows commands no evidence of focal neurological deficit. Pulm: Patient has acceptable oxygenation and ventilation Cards: Patient blood pressure with wide pulse pressure with low systolic pressure map around 55-60 mmHg. Patient had previous history of infective endocarditis with lactic valve regurgitation causing left ventricular heart failure with severe pulmonary hypertension patient was evaluated at [facility] for aortic valve repair. Patient developed acute blood loss anemia with hemodynamic instability it is complicated because the loss of pre-load compromise the cardiac output. FEN-GI: Patient has hepatitis C with decompensated liver disease with acute GI bleed most likely upper GI since patient has a chronic liver disease started on IV PPI infusion and IV octreotide GI wanted to do upper endoscopy he was assessed by anesthesiologist consider him as a high risk candidate for any kind of anesthesia used for intubation recommended transferred to [facility] after stabilization. Renal: Patient has acute kidney injury most likely secondary to acute blood loss anemia. ID: To start on gram-negative coverage fluoroquinolones or cephalosporin for prophylaxis for spontaneous better peritonitis in the setting of GI bleed. Heme/Onc: Presently with acute blood loss anemia secondary to Xarelto with high INR with patient with possible but is CL/ulcer bleed patient almost received 7 units of PRBC in [place] before he was transferred to [facility] and also we gave almost 4 years FFP. First Line treatment for Xarelto is not available the next line will be 4 factor PCC . Endo: Glucose Monitored Integ/MSK: Skin Care per routine ICU Nursing Protocol to prevent ulcers. Lines: All lines examined without evidence of infection : Dispo: to suggest severe aortic regurgitation and severe pulmonary hypertension patient will need a I aortic valve replacement patient was transferred to the [facility] for further management in critical state. CODE: I personally spoke with the mother about the plan of care, the mother agreed and transferring him to [facility]. Full Code
--- NOTE | 2019-03-02 14:48 | Anesthesia Evaluation PreOp ---
Date of Encounter: 03/02/19 - Past History Alcohol Use: none Drug use: opiates, marijuana, IV Drug Use Medications and Allergies Albuterol Sulfate [Albuterol Inhaler] 2 puff IH Q4HR PRN 01/02/19 [History] Allopurinol [Zyloprim 100 MG] 100 mg PO DAILY 01/02/19 [History] Azelastine 0.1% Nasal [place] [Astelin] 1 spr NS DAILY PRN 01/02/19 [History] Cyanocobalamin (Vitamin B-12) [Vitamin B12] 1,000 mcg PO DAILY 01/02/19 [History] Fluconazole [Diflucan] 200 mg PO DAILY 01/02/19 [History] Folic Acid 1 mg PO DAILY 01/02/19 [History] Guaifenesin [Mucinex] 600 mg PO BID 01/02/19 [History] Ibuprofen [Ibu] 800 mg PO Q8H PRN 01/02/19 [History] Levothyroxine Sodium [Levoxyl] 25 mcg PO DAILY 01/02/19 [History] Loratadine [Claritin] 10 mg PO DAILY 01/02/19 [History] Magnesium Oxide [Magnesium] 400 mg PO DAILY 01/02/19 [History] Methocarbamol [Robaxin] 500 mg PO Q8HR PRN 01/02/19 [History] Nitroglycerin [Nitrostat] 0.4 mg SL Q5M PRN MDD [id number] CALL 911 01/02/19 [History] Rivaroxaban [Xarelto] 20 mg PO QPM 01/02/19 [History] Sertraline [Zoloft] 100 mg PO DAILY 01/02/19 [History] Trazodone HCl 50 mg PO HS PRN 01/02/19 [History] hydrALAZINE [HydrALAZINE] 10 mg PO Q8H 01/02/19 [History] levETIRAcetam [Roweepra] 750 mg PO BID 01/02/19 [History] Gabapentin [Neurontin] 100 mg PO TID 03/02/19 [History] Allergy/AdvReac Type Severity Reaction Status Date / Time vancomycin Allergy See Verified 01/04/19 12:26 Comments Anesthesia Results - Labs 03/02/19 12:26 03/02/19 12:26
[2019-03-02] MEDS ORDERED: Naloxone 0.4 MG/ML INJ IVP PRN (15:37)
[2019-03-02] MEDS ORDERED: 0.9 % Sodium Chloride 1,000 ML IVC SCH (15:45)
[2019-03-02] MEDS ORDERED: Pantoprazole 40 MG in 0.9 % Sodium Chloride Mini Bag 100 ML IVC SCH (15:45)
[2019-03-02 15:57] LABS: Magnesium 2.2 mg/dL (1.6-2.6)
--- NOTE | 2019-03-02 16:03 | Discharge Summary ---
<Jason Monge S - Last Filed: 03/02/19 16:43> - NOTES TO OUTPATIENT PROVIDER Notes to Outpatient Provider: Patient needs to f/u with outpatient provider for hepatitis C and HIV. He needs to f/u with a SW to discuss options for getting clean from drugs and staying sober. Recommend to determine as an outpatient or at transfer hospital regarding further anticoagulation use in the setting of massive bleed. Also recommended for the pt to have cardiac workup as recommended by CT surgery for valvular replacement. Orders not resulted at time of discharge: Pending orders 03/02/19 12:12 ECG 12 lead ECG [ECG] Stat 03/02/19 12:26 PLASMA [BBK] Stat Red Blood Cells [BBK] Stat Type and Screen [BBK] Stat 03/02/19 15:45 Hemoglobin and Hematocrit [HEME] Q6H 03/02/19 16:02 ABG [Arterial Blood Gas] Stat 03/02/19 21:45 Hemoglobin and Hematocrit [HEME] Q6H 03/03/19 04:00 Complete Blood Count w/o Diff [HEME] AM 0400 Comprehensive Metabolic Panel AM 0400 INR/PT [Prothrombin Time INR] [COAG] AM 0400 Date of Encounter: 03/02/19 Time of Encounter: 16:11 - Discharge Diagnosis (1) GI bleed Priority: Primary Status: Acute Qualifiers: GI bleed type/associated pathology: melena Qualified Code(s): K92.1 - Melena (2) Supratherapeutic INR Priority: Secondary Status: Acute (3) HIV (human immunodeficiency virus infection) Priority: Secondary Status: Chronic Qualifiers: HIV symptom status: unspecified Qualified Code(s): B20 - Human immunodeficiency virus [HIV] disease (4) CHF (congestive heart failure) Priority: Secondary Status: Chronic Qualifiers: Heart failure type: diastolic Heart failure chronicity: acute on chronic Qualified Code(s): I50.33 - Acute on chronic diastolic (congestive) heart failure (5) DVT prophylaxis Priority: Secondary Status: Acute (6) History of hepatitis C Priority: Secondary Status: Chronic (7) IV drug abuse Priority: Secondary Status: Chronic (8) Severe aortic regurgitation Priority: Secondary Status: Acute (9) Tobacco dependence Priority: Secondary Status: Chronic - Discharge Medications Prescriptions: Continued Cyanocobalamin (Vitamin B-12) [Vitamin B12] 1,000 mcg PO DAILY Trazodone HCl 50 mg PO HS PRN PRN Reason: Insomnia Nitroglycerin [Nitrostat] 0.4 mg SL Q5M PRN MDD [id number] CALL 911 PRN Reason: Chest Pain Methocarbamol [Robaxin] 500 mg PO Q8HR PRN PRN Reason: Muscle Spasm Magnesium Oxide [Magnesium] 400 mg PO DAILY Guaifenesin [Mucinex] 600 mg PO BID levETIRAcetam [Roweepra] 750 mg PO BID hydrALAZINE [HydrALAZINE] 10 mg PO Q8H Sertraline [Zoloft] 100 mg PO DAILY Loratadine [Claritin] 10 mg PO DAILY Levothyroxine Sodium [Levoxyl] 25 mcg PO DAILY Folic Acid 1 mg PO DAILY Azelastine 0.1% Nasal [place] [Astelin] 1 spr NS DAILY PRN PRN Reason: Allergy Symptoms Allopurinol [Zyloprim 100 MG] 100 mg PO DAILY Albuterol Sulfate [Albuterol Inhaler] 2 puff IH Q4HR PRN PRN Reason: Shortness Of Breath Fluconazole [Diflucan] 200 mg PO DAILY Gabapentin [Neurontin] 100 mg PO TID Discontinued Ibuprofen [Ibu] 800 mg PO Q8H PRN PRN Reason: Mild To Moderate Pain Rivaroxaban [Xarelto] 20 mg PO QPM Home Medications: Albuterol Sulfate [Albuterol Inhaler] 2 puff IH Q4HR PRN 01/02/19 [History] Allopurinol [Zyloprim 100 MG] 100 mg PO DAILY 01/02/19 [History] Azelastine 0.1% Nasal [place] [Astelin] 1 spr NS DAILY PRN 01/02/19 [History] Cyanocobalamin (Vitamin B-12) [Vitamin B12] 1,000 mcg PO DAILY 01/02/19 [History] Fluconazole [Diflucan] 200 mg PO DAILY 01/02/19 [History] Folic Acid 1 mg PO DAILY 01/02/19 [History] Guaifenesin [Mucinex] 600 mg PO BID 01/02/19 [History] Levothyroxine Sodium [Levoxyl] 25 mcg PO DAILY 01/02/19 [History] Loratadine [Claritin] 10 mg PO DAILY 01/02/19 [History] Magnesium Oxide [Magnesium] 400 mg PO DAILY 01/02/19 [History] Methocarbamol [Robaxin] 500 mg PO Q8HR PRN 01/02/19 [History] Nitroglycerin [Nitrostat] 0.4 mg SL Q5M PRN MDD [id number] CALL 911 01/02/19 [History] Sertraline [Zoloft] 100 mg PO DAILY 01/02/19 [History] Trazodone HCl 50 mg PO HS PRN 01/02/19 [History] hydrALAZINE [HydrALAZINE] 10 mg PO Q8H 01/02/19 [History] levETIRAcetam [Roweepra] 750 mg PO BID 01/02/19 [History] Gabapentin [Neurontin] 100 mg PO TID 03/02/19 [History] Allergies/Adverse Reactions: Allergy/AdvReac Type Severity Reaction Status Date / Time vancomycin Allergy See Verified 01/04/19 12:26 Comments Labs on day of discharge: Labs from last 24 hours 03/02/19 03/02/19 03/02/19 12:43 12:26 12:26 WBC RBC Hgb Hct MCV MCH MCHC RDW Plt Count MPV Immature Gran % Seg Neutrophils % Lymphocytes % Monocytes % Eosinophils % Basophils % Neutrophils # Lymphocytes # Monocytes # Eosinophils # Basophils # Platelet Estimate Polychromasia Hypochromasia Anisocytosis PT INR APTT Sodium 142 Potassium 4.5 Chloride 114 H Carbon Dioxide 17 L BUN 89 H Creatinine 1.52 H Est GFR ( Amer) > 60 Est GFR (Non-Af Amer) 52 L BUN/Creatinine Ratio 59 H Glucose 126 H Calculated Osmolality 323 H Calcium 8.2 L Magnesium 2.2 Total Bilirubin 0.6 AST 19 ALT 10 Alkaline Phosphatase 74 Serum Total Protein 4.8 L Albumin 3.0 L Globulin 1.8 L Albumin/Globulin Ratio 1.7 Stool Occult Bld Scrn Positive A Blood Type O POSITIVE Antibody Screen NEGATIVE Crossmatch See Detail 03/02/19 03/02/19 12:26 12:26 WBC 10.9 RBC 1.26 L Hgb 3.3 L* Hct 11.5 L* MCV 91.3 MCH 26.2 L MCHC 28.7 L RDW 18.6 H Plt Count 173 MPV 11.9 Immature Gran % 0.7 Seg Neutrophils % 87.5 Lymphocytes % 7.2 Monocytes % 4.5 Eosinophils % 0.1 Basophils % 0.0 Neutrophils # 9.5 H Lymphocytes # 0.8 Monocytes # 0.5 Eosinophils # 0.0 Basophils # 0.0 Platelet Estimate Normal Polychromasia 2+ A Hypochromasia Present A Anisocytosis 1+ A PT 39.5 H INR 3.5 APTT 29.7 Sodium Potassium Chloride Carbon Dioxide BUN Creatinine Est GFR ( Amer) Est GFR (Non-Af Amer) BUN/Creatinine Ratio Glucose Calculated Osmolality Calcium Magnesium Total Bilirubin AST ALT Alkaline Phosphatase Serum Total Protein Albumin Globulin Albumin/Globulin Ratio Stool Occult Bld Scrn Blood Type Antibody Screen Crossmatch - Impressions ITS Impressions Chest X-Ray 03/02/19 14:10 IMPRESSION: The newly placed right IJ central venous line is appropriately positioned, with the distal tip in the central SVC. No pneumothorax. D/ / Gabino Nieves MD / Gabino Nieves MD Interpreting Provider: Gabino Nieves MD Date of admission: 03/02/19 Primary care physician: PCP NONE Consults: 03/02/19 12:35 PICCRN [Consult to Invasive Line Access Team] [CONS] Stat Reason for Consult: IV access Line Type: Midline Time Notified: 12:36 Call Completed: Yes 03/02/19 13:13 Consult to Gastroenterology [CONS] Stat Consulting Provider: [facility] [place] Reason for Consult: GIB Time Notified: 13:14 Call Completed: Yes 03/02/19 14:41 Consult to Critical Care [CONS] Stat Consulting Provider: [facility] [place] Reason for Consult: GI bleed Time Notified: 14:41 Call Completed: Yes Discharging clinician: Jason Monge Anticipated date of discharge: 03/02/19 - Patient Status Disposition: Transfer Short-Term Hosp Condition: Critical Functional capacity at discharge: bed bound Overall status at discharge: patient is not back to baseline - Discharge Instructions Follow Up With: NONE,PCP [Primary Care Provider] - - Diet and Activity Activity: other (per transfer hospital recommendations) Diet: other (hospital recommendations) - Hospital Course Hospital course: Mr. Avery is a 38 year old male with PMH of IVDU, IE, severe aortic regurgitation, HIV, hepatitis C and HIV. He is coming to the hospital today with the chief complaint of melena and black, tarry stool. He has a known hx of previous episodes of IE, recently admitted to [facility] for IE and found to have an ECHO revealing a LVEF of 55% and severe AR with valvular calcifications. He was started on a NOAC rivaroxaban. He has had increasing weakness and fatigue, with very dark tarry stools. He has never had this happen before. He denies chest pain, SOB, hemoptysis, hematemesis, hematuria. He is quite lethargic at the bedside. He denies any PUD hx but does use ibuprofen daily. He did report hitting his head without LOC. CT head was negative in the ER. He was found to have a hemoblogin of 3.3 at admission. His INR was supratheraputic. He was given 5 units of pRBC and 3 units of FFP. He was brought to the OR for colonoscopy and EGD, however, the pt was determined to be too high risk by anesthesia. Protonix and octreotide drips continued. He was given one dose of TXA. Attempted to transfer to [facility]. Repeat hemogoblin 6.8, hct 21.1. ABG pH 7.41, pCO2 27, pO2 81. The pt will receive two more units of pRBC and 1 unit of FFP. Pt has been accepted at [facility] for transfer. Time spent discussing smoking cessation with patient: 3 to 10 minutes - Time Spent with Patient Total time spent providing and/or coordinating discharge services: Greater than 30 minutes Physical Examination Vital Signs: Vital Signs, Last 4 Hours Temp Pulse Resp BP Pulse Ox 03/02/19 14:36 81 22 85/27 03/02/19 14:15 79 22 86/29 100 03/02/19 14:04 76 24 82/38 03/02/19 13:57 79 24 100 03/02/19 13:45 78 22 76/43 03/02/19 13:26 83 22 82/20 100 03/02/19 13:15 85 22 78/54 100 03/02/19 13:00 95 22 93/81 100 03/02/19 12:45 91 22 87/68 03/02/19 12:30 90 22 90/32 03/02/19 12:17 98.0 F 91 22 90/31 100 General appearance: appears uncomfortable Eyes: icteric ENT: oropharynx dry Auscultation: bilateral: diminished breath sounds Cardiovascular: regular rate and rhythm, murmur noted Gastrointestinal: soft, non-distended Integumentary: normal Extremities: no cyanosis, no edema, no clubbing unable to assess due to mental status anxious <Sergey Parsons S - Last Filed: 03/02/19 19:16> Orders not resulted at time of discharge: Pending orders 03/02/19 12:12 ECG 12 lead ECG [ECG] Stat 03/02/19 12:26 PLASMA [BBK] Stat Red Blood Cells [BBK] Stat Type and Screen [BBK] Stat 03/03/19 04:00 Complete Blood Count w/o Diff [HEME] AM 0400 Comprehensive Metabolic Panel AM 0400 INR/PT [Prothrombin Time INR] [COAG] AM 0400 Date of Encounter: 03/02/19 Labs on day of discharge: Labs from last 24 hours 03/02/19 03/02/19 03/02/19 16:35 16:16 16:15 WBC RBC Hgb 6.8 L D Hct 21.1 L MCV MCH MCHC RDW Plt Count MPV Immature Gran % Seg Neutrophils % Lymphocytes % Monocytes % Eosinophils % Basophils % Neutrophils # Lymphocytes # Monocytes # Eosinophils # Basophils # Platelet Estimate Polychromasia Hypochromasia Anisocytosis PT INR APTT ABG pH 7.41 ABG pCO2 27 L ABG pO2 81 L ABG HCO3 17 L ABG Total CO2 18 L ABG O2 Saturation 96 ABG Base Excess -7 L O2 Delivery Device Room Air Sodium Potassium Chloride Carbon Dioxide BUN Creatinine Est GFR ( Amer) Est GFR (Non-Af Amer) BUN/Creatinine Ratio Glucose POC Glucose 169 H Calculated Osmolality Calcium Magnesium Total Bilirubin AST ALT Alkaline Phosphatase Serum Total Protein Albumin Globulin Albumin/Globulin Ratio Stool Occult Bld Scrn Blood Type Antibody Screen Crossmatch 03/02/19 03/02/19 03/02/19 12:43 12:26 12:26 WBC RBC Hgb Hct MCV MCH MCHC RDW Plt Count MPV Immature Gran % Seg Neutrophils % Lymphocytes % Monocytes % Eosinophils % Basophils % Neutrophils # Lymphocytes # Monocytes # Eosinophils # Basophils # Platelet Estimate Polychromasia Hypochromasia Anisocytosis PT INR APTT ABG pH ABG pCO2 ABG pO2 ABG HCO3 ABG Total CO2 ABG O2 Saturation ABG Base Excess O2 Delivery Device Sodium 142 Potassium 4.5 Chloride 114 H Carbon Dioxide 17 L BUN 89 H Creatinine 1.52 H Est GFR ( Amer) > 60 Est GFR (Non-Af Amer) 52 L BUN/Creatinine Ratio 59 H Glucose 126 H POC Glucose Calculated Osmolality 323 H Calcium 8.2 L Magnesium 2.2 Total Bilirubin 0.6 AST 19 ALT 10 Alkaline Phosphatase 74 Serum Total Protein 4.8 L Albumin 3.0 L Globulin 1.8 L Albumin/Globulin Ratio 1.7 Stool Occult Bld Scrn Positive A Blood Type O POSITIVE Antibody Screen NEGATIVE Crossmatch See Detail 03/02/19 03/02/19 12:26 12:26 WBC 10.9 RBC 1.26 L Hgb 3.3 L* Hct 11.5 L* MCV 91.3 MCH 26.2 L MCHC 28.7 L RDW 18.6 H Plt Count 173 MPV 11.9 Immature Gran % 0.7 Seg Neutrophils % 87.5 Lymphocytes % 7.2 Monocytes % 4.5 Eosinophils % 0.1 Basophils % 0.0 Neutrophils # 9.5 H Lymphocytes # 0.8 Monocytes # 0.5 Eosinophils # 0.0 Basophils # 0.0 Platelet Estimate Normal Polychromasia 2+ A Hypochromasia Present A Anisocytosis 1+ A PT 39.5 H INR 3.5 APTT 29.7 ABG pH ABG pCO2 ABG pO2 ABG HCO3 ABG Total CO2 ABG O2 Saturation ABG Base Excess O2 Delivery Device Sodium Potassium Chloride Carbon Dioxide BUN Creatinine Est GFR ( Amer) Est GFR (Non-Af Amer) BUN/Creatinine Ratio Glucose POC Glucose Calculated Osmolality Calcium Magnesium Total Bilirubin AST ALT Alkaline Phosphatase Serum Total Protein Albumin Globulin Albumin/Globulin Ratio Stool Occult Bld Scrn Blood Type Antibody Screen Crossmatch - Impressions ITS Impressions Chest X-Ray 03/02/19 14:10 IMPRESSION: The newly placed right IJ central venous line is appropriately positioned, with the distal tip in the central SVC. No pneumothorax. D/ / Gabino Nieves MD / Gabino Nieves MD Interpreting Provider: Gabino Nieves MD Date of admission: 03/02/19 14:03 Primary care physician: PCP NONE Consults: 03/02/19 12:35 PICCRN [Consult to Invasive Line Access Team] [CONS] Stat Reason for Consult: IV access Line Type: Midline Time Notified: 12:36 Call Completed: Yes 03/02/19 13:13 Consult to Gastroenterology [CONS] Stat Consulting Provider: [facility] [place] Reason for Consult: GIB Time Notified: 13:14 Call Completed: Yes 03/02/19 14:41 Consult to Critical Care [CONS] Stat Consulting Provider: [facility] [place] Reason for Consult: GI bleed Time Notified: 14:41 Call Completed: Yes 03/02/19 18:03 Consult to Nutrition [CONS] Routine Comment: Consulting Provider: NUTRITION Reason for Dietary Consult: Other - Hospital Course Hospital course: Mr. Avery is a 38 year old male with past medical history as mentioned above since patient had this severe diabetic regurgitation with severe pulmonary hypertension he was high risk candidate in for undergoing and diagnostic or interventional EGD after having multidisciplinary discussion with anesthesiology and gastroenterology in the best interest of the patient care. Patient was transferred to the [facility] for management of his acute blood loss anemia with severe aortic regurgitation and severe pulmonary hypertension. Patient is seen IN HIS OF PRBC WITH 4 UNITS OF FFP PATIENT WOULD HAVE NEED 1 UNIT OF PLATELETS SINCE THE TRANSFER HAPPENED QUICKLY PATIENT WAS TRANSFERRED TO THE [facility] IN CRITICAL CONDITION. - Time Spent with Patient Total time spent providing and/or coordinating discharge services: Physical Examination Vital Signs: Vital Signs, Last 4 Hours Temp Pulse Resp BP Pulse Ox 03/02/19 18:39 82 20 93/45 100 03/02/19 17:50 97.3 F L 82 20 102/49 99 03/02/19 17:48 82 20 86/46 100 03/02/19 17:35 96.6 F L 81 20 88/38 03/02/19 17:05 80 16 93/52 97 03/02/19 17:00 78 18 84/37 97 03/02/19 16:35 78 16 84/34 98 03/02/19 16:12 97.2 F L 78 18 87/32 99
[2019-03-02 16:28] LABS: Hematocrit 21.1 % (37.5-50.1)
[2019-03-02 16:31] LABS: Hemoglobin 6.8 g/dL (12.9-16.9)
[2019-03-02 16:38] LABS: ABG Base Excess -7 mEq/L (-2 to 3); ABG HCO3 17 mEq/L (21-27); ABG Oxygen Saturation 96 % (95-98); ABG PCO2 27 mmHg (35-45); ABG PH 7.41 pH Units (7.32-7.45); ABG PO2 81 mmHg (85-104); ABG TCO2 18 mEq/L (20-26)
--- NOTE | 2019-03-02 16:51 | Gastroenterology Consult Note ---
Date of Encounter: 03/02/19 Time of Encounter: 13:30 - Assessment and plan (1) GI bleed Current Visit: Yes Status: Acute Assessment and plan: Hgb 3.3 on admission with INR 3.5. 6 units PRBC have been ordered. 3 units FFP ordered. Given one dose TXA. EGD was considered, but determined to be too high risk. Plan for transfer to [facility]. Qualifiers: GI bleed type/associated pathology: melena Qualified Code(s): K92.1 - Melena (2) Severe aortic regurgitation Current Visit: No Status: Acute Assessment and plan: ECHO 01/03/2019 with LVEF 55%, severely dilated left ventricle, calcification/thickening remains between the right and non-coronary cusps, turbulent aortic regurgitation, which complicates analysis, severe pulmonary hypertension. (3) Supratherapeutic INR Current Visit: Yes Status: Acute Assessment and plan: INR 3.5 on admission. 3 units FFP ordered. (4) HIV (human immunodeficiency virus infection) Current Visit: No Status: Chronic Qualifiers: HIV symptom status: unspecified Qualified Code(s): B20 - Human immunodeficiency virus [HIV] disease (5) History of hepatitis C Current Visit: No Status: Chronic Assessment and plan: Secondary to IVDU. - Time Spent With Patient Total time spent is greater than 50% in coordination of care (as documented) at patient's floor/unit and/or counseling patient: GI History of Present Illness - Data of Consult Patient: new to practice Consult date: 03/02/19 Requesting Physician: Sergey Parsons MD - Consult Narrative Reason for consult: GI Bleed History of present illness: Mr. Avery is a 38 year old male with PMHx of CVA, hepatitis C, IVDU, HIV, endocarditis, DVT on Xarelto, CHF who presented with weakness, fatigue, dark tarry stools. He states the melena started about one week ago. He complains of epigastric pain that has been ongoing "for awhile". He denies history of GI bleed. He denies fever, chills, chest pain, hematemesis, coffee-ground emesis, hematochezia. He reports using ibuprofen 3 times a day. Hgb on admission 3.3 with INR 3.5. He was ordered 6 units PRBC and 3 units FFP. He was given one dose of TXA. He was started on Protonix and octreotide drips. EGD was considered, but deemed too high risk by anesthesia. Plan for transfer to [facility]. Procedures: None NSAIDs: Ibuprofen Anticoagulation: Xarelto Past Med Surg Social Fam HX - Past Medical History Medical history: CVA, hepatitis, liver disease, other Additional medical history: septicemia, meningitis, heart failure Psychiatric history: other - Past Surgical History Surgical History: other Additional surgical history: right hand surgery. - Social History Smoking Status: Current every day smoker Smokeless Tobacco Status: No Alcohol use: none Drug use: opiates, marijuana, IV Drug Use - Gastrointestinal Gastrointestinal: Present: as per HPI - Constitutional Constitutional: as per HPI - EENT Eyes: as per HPI Ears: Present: as per HPI Nose, mouth and throat: Present: as per HPI - Cardiovascular Cardiovascular ROS: Present: as per HPI - Respiratory Respiratory IM: Present: as per HPI - Genitourinary Genitourinary: Absent: change in color, Urinary frequency - Neurological ROS Neurological GI: Present: as per HPI - Hematologic/Lymphatic Hematologic/Lymphatic pediatric: Present: as per HPI - Musculoskeletal Musculoskeletal ROS GI: Present: as per HPI - Integumentary Integumentary GI: Present: as per HPI - Psychiatric ROS Psychiatric GI: Present: as per HPI - Endocrine Endocrine IM: Present: as per HPI - Constitutional Vitals: Temp Pulse Resp BP Pulse Ox 97.2 F L 79 18 87/32 99 03/02/19 16:12 03/02/19 16:12 03/02/19 16:12 03/02/19 16:12 03/02/19 16:12 General appearance: Present: cooperative, A&O X 3, no acute distress, answers questions appropriately - Head Head exam: Present: atraumatic, normocephalic - Eye Eye exam: Present: normal appearance, sclera anicteric - ENT ENT exam: Present: mucous membranes dry - Neck Neck exam general surgery: Present: normal inspection, trachea midline - Respiratory Respiratory exam: Present: decreased breath sounds, CTAB. Absent: rales, rhonchi - Cardiovascular Cardiovascular exam: Present: RRR, +S1, +S2 - GI/Abdominal GI/Abdominal exam: Present: soft, tenderness (epigastric), no peritoneal signs. Absent: distended, firm, guarding - Rectal Rectal exam: Present: deferred - Extremities Exam Extremities exam: Present: warm - Neurological Exam Neurological exam: Present: no focal deficits - Psychiatric Psychiatric exam: Present: normal affect, normal mood - Skin Skin exam: Present: dry, intact, normal color, warm Results - Labs CBC & Chem 7: 03/02/19 16:15 03/02/19 12:26 Labs: Last Result 03/02/19 12:26 Calcium 8.2 L Entire Visit 03/02/19 03/02/19 03/02/19 12:26 12:26 12:26 Hgb 3.3 L* Hct 11.5 L* PT 39.5 H Total Bilirubin 0.6 AST 19 ALT 10 03/02/19 16:15 Hgb 6.8 L D Hct 21.1 L PT Total Bilirubin AST ALT - ABG ABG results: ABG ABG pH 7.41 pH Units (7.32-7.45) 03/02/19 16:35 ABG pCO2 27 mmHg (35-45) L 03/02/19 16:35 ABG pO2 81 mmHg (85-104) L 03/02/19 16:35 ABG O2 Saturation 96 % (95-98) 03/02/19 16:35 PT/INR, D-dimer PT 39.5 Seconds (9.4-12.1) H 03/02/19 12:26 - Impressions Impressions Chest X-Ray 03/02/19 14:10 IMPRESSION: The newly placed right IJ central venous line is appropriately positioned, with the distal tip in the central SVC. No pneumothorax. D/ / Gabino Nieves MD / Gabino Nieves MD Interpreting Provider: Gabino Nieves MD Consult Discharge Plan - Plan Referrals: NONE,PCP [Primary Care Provider] -
[2019-03-02 18:43] VITALS: BP 93/45
--- NOTE | 2019-03-03 17:53 | Electrocardiograph Report ---
[address] [place], [place] [address] Test Date: 2019-03-02 Pat Name: Ramon Avery Department: EXAM4 Room: [facility] Gender: M Track Supervisor: : 1980 Requested By: Clyde Grant Order Number: [id number] Reading MD: Jessi Turcios Measurements Intervals [place] Rate: 90 P: 39 RI: 204 QRS: -7 QRSD: 107 T: 115 QT: 423 QTc: 518 Interpretive Statements Sinus rhythm Repol abnrm suggests ischemia, lateral leads Prolonged QT interval Electronically Signed On 03-03-2019 17:51:21 EDT by Jessi Turcios
--- NOTE | 2019-03-05 11:43 | Electrocardiograph Report ---
[address] [address] Test Date: 2019-03-02 Pat Name: Ramon Avery Department: EXAM4 Room: [facility] Gender: M Pathology Technician: : 1980 Requested By: Konstantin Walsh Order Number: [id number] Reading MD: Ramon Turcios Measurements Intervals [place] Rate: 80 P: 25 MN: 175 QRS: 5 QRSD: 110 T: 115 QT: 467 QTc: 539 Interpretive Statements Sinus rhythm Repol abnrm, severe global ischemia Prolonged QT interval Electronically Signed On 03-05-2019 11:41:21 EDT by Ramon Turcios
== END 2019-03-02 18:45 | disposition short-term general hospital (02) | DRG 254 ==
LOC: EMEROOARM 12:09 → ICNU 14:03
PROVIDERS: ADMIT Internal Medicine Pulmonary Disease; ATTEND Internal Medicine Pulmonary Disease

== ENCOUNTER 2019-09-13 12:19 | Observation (INO) ==
[2019-09-13] MEDS ORDERED: Aspirin 81 MG TAB.CHEW PO ONE (12:44)
[2019-09-13 13:11] LABS: INR 1.7; Prothrombin Time 19.2 Seconds (9.4-12.1)
[2019-09-13 13:12] LABS: Immature Granulocytes % 0.4 % (0-4); Mean Corpuscular Hemoglobin 24.7 pg (28.0-33.3); White Blood Count 7.3 K/mcL (4.3-11.1)
[2019-09-13 13:14] LABS: Basophils # 0.1 K/mcL (0.0-0.2); Basophils % 1.1 %; Eosinophils # 0.2 K/mcL (0.0-0.6); Eosinophils % 2.2 %; Hematocrit 38.2 % (37.5-50.1); Hemoglobin 11.9 g/dL (12.9-16.9); Immature Platelets 6.2 % (1.1-6.1); Lymphocytes # 0.8 K/mcL (0.6-4.6); Lymphocytes % 11.1 %; Mean Corpuscular HGB Conc 31.2 g/dL (31.6-35.5); Mean Corpuscular Volume 79.4 fL (83.0-100.0); Mean Platelet Volume 10.3 fL (9.4-12.4); Monocytes # 1.2 K/mcL (0.0-1.3); Monocytes % 16.6 %; Platelet Count 108 K/mcL (140-400); Red Blood Count 4.81 M/mcL (4.19-5.50); Red Cell Distribution Width 22.8 % (11.5-14.5); Segmented Neutrophils % 68.6 %
[2019-09-13 13:16] LABS: Platelet Estimate Slight Decrease (Normal)
[2019-09-13 13:26] LABS: BUN/Creatinine Ratio 20 (6-26); Blood Urea Nitrogen 28 mg/dL (6-20); Calcium 8.4 mg/dL (8.6-10.3); Carbon Dioxide 21 mEq/L (23-29); Chloride 102 mEq/L (98-107); Glucose 86 mg/dL (70-105); Osmolality,Calculated 277 (280-300); Potassium 5.3 mEq/L (3.5-5.1); Sodium 131 mEq/L (136-145); eGFR For African Americans > 60 (> 60); eGFR For Non-African Americans 58 (> 60)
[2019-09-13 13:38] LABS: Troponin I 0.04 ng/mL (< 0.04)
[2019-09-13] MEDS ORDERED: Isovue-370 500 ML BOTTLE IVP ONE (13:39)
[2019-09-13] MEDS: Nitroglycerin 0.4 MG TAB.SUBL SL SCH ×2 (14:33→15:26)
[2019-09-13] MEDS ORDERED: Nitroglycerin 0.4 MG TAB.SUBL SL PRN (17:46)
[2019-09-13] MEDS ORDERED: Naloxone 0.4 MG/ML INJ IVP PRN (18:03)
[2019-09-13 19:15] LABS: Albumin 4.4 g/dL (3.5-5.7); Albumin/Globulin Ratio 1.8 (1.1-2.2); Bilirubin,Direct 0.7 mg/dL (0.0-0.2); Bilirubin,Total 1.7 mg/dL (0.3-1.0); Globulin 2.5 g/dL (2.4-3.5); Total Protein 6.9 g/dL (6.4-8.9)
[2019-09-13] MEDS: Gabapentin 100 MG CAPSULE PO SCH (20:35)
[2019-09-13] MEDS: predniSONE 20 MG TABLET PO SCH (20:35)
[2019-09-13] MEDS: hydrALAZINE 10 MG TABLET PO SCH (20:35)
[2019-09-13] MEDS: levETIRAcetam 250 MG TABLET PO SCH (20:35)
[2019-09-13] MEDS: Torsemide 20 MG TABLET PO SCH (20:37)
[2019-09-13] MEDS ORDERED: Furosemide 40 MG/4 ML VIAL IVP ONE (21:21)
[2019-09-13] MEDS: traZODone 50 MG TABLET PO PRN (21:25)
[2019-09-13] MEDS: *HR* Heparin 5,000 UNIT/ML VIAL SQ SCH (21:25)
[2019-09-13] MEDS: Ipratropium/Albuterol Neb 3 ML IH SCH ×2 (21:35→21:36)
[2019-09-13] MEDS: Methocarbamol 500 MG TABLET PO PRN (22:56)
[2019-09-13] MEDS ORDERED: Acetaminophen 325 MG TABLET PO ONE (23:19)
[2019-09-14 01:39] LABS: Hemoglobin 11.2 g/dL (12.9-16.9)
[2019-09-14 01:41] LABS: Basophils % 0.2 %; Hematocrit 35.5 % (37.5-50.1); Immature Granulocytes % 0.4 % (0-4); Immature Platelets 5.3 % (1.1-6.1); Lymphocytes # 0.3 K/mcL (0.6-4.6); Lymphocytes % 3.2 %; Mean Corpuscular HGB Conc 31.5 g/dL (31.6-35.5); Mean Corpuscular Hemoglobin 25.1 pg (28.0-33.3); Mean Corpuscular Volume 79.4 fL (83.0-100.0); Monocytes # 0.5 K/mcL (0.0-1.3); Monocytes % 4.9 %; Platelet Count 114 K/mcL (140-400); Red Blood Count 4.47 M/mcL (4.19-5.50); Red Cell Distribution Width 22.6 % (11.5-14.5); Segmented Neutrophils % 91.3 %; White Blood Count 10.6 K/mcL (4.3-11.1)
[2019-09-14 01:54] LABS: Neutrophils # 9.7 K/mcL (1.6-8.9)
[2019-09-14 02:00] LABS: Calcium 8.8 mg/dL (8.6-10.3)
[2019-09-14] MEDS: hydrALAZINE 10 MG TABLET PO SCH ×3 (02:39→17:14)
[2019-09-14 03:02] LABS: Platelet Estimate Normal (Normal)
[2019-09-14] MEDS: Ipratropium/Albuterol Neb 3 ML IH SCH ×4 (03:14→22:13)
[2019-09-14] MEDS: Azelastine 0.1% Nasal Spray 30 ML BOTTLE NS PRN ×2 (03:35→22:04)
[2019-09-14] MEDS: Levothyroxine 25 MCG TABLET PO SCH (05:20)
[2019-09-14] MEDS: *HR* Heparin 5,000 UNIT/ML VIAL SQ SCH ×3 (05:20→22:10)
[2019-09-14] MEDS ORDERED: Regadenoson 0.4 MG/5 ML SYRINGE IVP ONE (05:44)
[2019-09-14] MEDS: Magnesium Oxide 400 MG TABLET PO SCH (10:41)
[2019-09-14] MEDS: levETIRAcetam 250 MG TABLET PO SCH ×2 (10:41→22:04)
[2019-09-14] MEDS: predniSONE 20 MG TABLET PO SCH (10:41)
[2019-09-14] MEDS: Folic Acid 1 MG TABLET PO SCH (10:41)
[2019-09-14] MEDS: Gabapentin 100 MG CAPSULE PO SCH ×3 (10:42→22:04)
[2019-09-14] MEDS: Fluconazole 100 MG TABLET PO SCH (10:42)
[2019-09-14] MEDS: Loratadine 10 MG TABLET PO SCH (10:42)
[2019-09-14] MEDS: 0.9 % Sodium Chloride 1,000 ML IVC SCH ×2 (12:44→22:04)
[2019-09-14] MEDS ORDERED: Perflutren Lipid Microsphere 1.3 ML in 0.9 % Sodium Chloride 8.7 ML IVP ONE (15:19)
[2019-09-14] MEDS: traZODone 50 MG TABLET PO PRN (22:04)
[2019-09-14] MEDS: Methocarbamol 500 MG TABLET PO PRN (22:04)
[2019-09-15] MEDS: hydrALAZINE 10 MG TABLET PO SCH ×3 (01:48→18:32)
[2019-09-15] MEDS: Ipratropium/Albuterol Neb 3 ML IH SCH ×4 (03:39→21:31)
[2019-09-15] MEDS: *HR* Heparin 5,000 UNIT/ML VIAL SQ SCH ×3 (05:56→22:59)
[2019-09-15] MEDS: Levothyroxine 25 MCG TABLET PO SCH (05:56)
[2019-09-15 09:19] LABS: Hematocrit 35.2 % (37.5-50.1); Hemoglobin 10.9 g/dL (12.9-16.9); Mean Corpuscular Hemoglobin 25.2 pg (28.0-33.3); Mean Corpuscular Volume 81.3 fL (83.0-100.0); Mean Platelet Volume 10.5 fL (9.4-12.4); Platelet Count 137 K/mcL (140-400); Red Blood Count 4.33 M/mcL (4.19-5.50); Red Cell Distribution Width 22.8 % (11.5-14.5); White Blood Count 11.7 K/mcL (4.3-11.1)
[2019-09-15 09:35] LABS: Calcium 8.5 mg/dL (8.6-10.3); Magnesium 2.2 mg/dL (1.6-2.6); Potassium 3.9 mEq/L (3.5-5.1)
[2019-09-15] MEDS ORDERED: 0.9 % Sodium Chloride 1,000 ML IVC SCH (10:45)
[2019-09-15] MEDS: Fluconazole 100 MG TABLET PO SCH (11:36)
[2019-09-15] MEDS: levETIRAcetam 250 MG TABLET PO SCH ×2 (11:36→20:33)
[2019-09-15] MEDS: Gabapentin 100 MG CAPSULE PO SCH ×3 (11:37→20:33)
[2019-09-15] MEDS: Magnesium Oxide 400 MG TABLET PO SCH (11:37)
[2019-09-15] MEDS: Loratadine 10 MG TABLET PO SCH (11:37)
[2019-09-15] MEDS: Folic Acid 1 MG TABLET PO SCH (11:38)
[2019-09-15] MEDS: Azelastine 0.1% Nasal Spray 30 ML BOTTLE NS PRN (23:00)
[2019-09-16 02:55] LABS: Hemoglobin 11.4 g/dL (12.9-16.9); Mean Corpuscular HGB Conc 30.8 g/dL (31.6-35.5); Mean Corpuscular Hemoglobin 24.9 pg (28.0-33.3); Mean Corpuscular Volume 80.8 fL (83.0-100.0); Mean Platelet Volume 10.2 fL (9.4-12.4); Platelet Count 147 K/mcL (140-400); Red Blood Count 4.58 M/mcL (4.19-5.50); White Blood Count 9.2 K/mcL (4.3-11.1)
[2019-09-16 03:15] LABS: Calcium 8.6 mg/dL (8.6-10.3); Magnesium 2.4 mg/dL (1.6-2.6); Potassium 4.1 mEq/L (3.5-5.1)
[2019-09-16] MEDS: Ipratropium/Albuterol Neb 3 ML IH SCH ×4 (04:02→21:36)
[2019-09-16] MEDS: hydrALAZINE 10 MG TABLET PO SCH ×3 (04:51→18:13)
[2019-09-16] MEDS: *HR* Heparin 5,000 UNIT/ML VIAL SQ SCH ×3 (04:56→22:22)
[2019-09-16] MEDS: Levothyroxine 25 MCG TABLET PO SCH (04:57)
[2019-09-16] MEDS: Loratadine 10 MG TABLET PO SCH (08:15)
[2019-09-16] MEDS: Folic Acid 1 MG TABLET PO SCH (08:15)
[2019-09-16] MEDS: Fluconazole 100 MG TABLET PO SCH (08:15)
[2019-09-16] MEDS: levETIRAcetam 250 MG TABLET PO SCH ×2 (08:16→22:22)
[2019-09-16] MEDS: Magnesium Oxide 400 MG TABLET PO SCH (08:16)
[2019-09-16] MEDS: Gabapentin 100 MG CAPSULE PO SCH ×3 (08:16→22:22)
[2019-09-16] MEDS: Azelastine 0.1% Nasal Spray 30 ML BOTTLE NS PRN (08:19)
[2019-09-16] MEDS: Acetaminophen 325 MG TABLET PO PRN (14:07)
[2019-09-16] MEDS ORDERED: Albumin 25% 25gram/100mL 25 GM/100 ML IV.SOLN IVPB ONE (15:19)
[2019-09-16] MEDS ORDERED: Furosemide 20 MG/2 ML VIAL IVP ONE (18:50)
[2019-09-16] MEDS: Ondansetron ODT 4 MG TAB.RAPDIS SL PRN (22:15)
[2019-09-17 01:52] LABS: Calcium 8.9 mg/dL (8.6-10.3); Potassium 4.7 mEq/L (3.5-5.1)
[2019-09-17] MEDS: hydrALAZINE 10 MG TABLET PO SCH ×3 (02:16→16:45)
[2019-09-17] MEDS: Ipratropium/Albuterol Neb 3 ML IH SCH ×4 (03:57→22:12)
[2019-09-17] MEDS: Levothyroxine 25 MCG TABLET PO SCH (06:38)
[2019-09-17] MEDS: *HR* Heparin 5,000 UNIT/ML VIAL SQ SCH ×2 (06:38→15:47)
[2019-09-17] MEDS: Loratadine 10 MG TABLET PO SCH (08:39)
[2019-09-17] MEDS: Magnesium Oxide 400 MG TABLET PO SCH (08:39)
[2019-09-17] MEDS: Fluconazole 100 MG TABLET PO SCH (08:39)
[2019-09-17] MEDS: Folic Acid 1 MG TABLET PO SCH (08:39)
[2019-09-17] MEDS: Gabapentin 100 MG CAPSULE PO SCH ×3 (08:40→20:02)
[2019-09-17] MEDS: levETIRAcetam 250 MG TABLET PO SCH ×2 (08:40→20:02)
[2019-09-17] MEDS: Acetaminophen 325 MG TABLET PO PRN ×2 (08:44→16:45)
[2019-09-17 13:28] LABS: Adenovirus Not Detected (Not Detect); Coronavirus 229E Not Detected (Not Detect); Coronavirus HKU1 Not Detected (Not Detect); Coronavirus NL63 Not Detected (Not Detect); Coronavirus OC43 Not Detected (Not Detect); Human Metapneumovirus Not Detected (Not Detect); Human Rhinovirus/Enterovirus Not Detected (Not Detect); Influenza A Subtype 2009 H1 Not Detected (Not Detect); Influenza B Not Detected (Not Detect); Parainfluenza Virus 1 Not Detected (Not Detect)
[2019-09-17 13:29] LABS: Bordetella Pertussis Not Detected (Not Detect); Chlamydophila pneumoniae Not Detected (Not Detect); Mycoplasma pneumoniae Not Detected (Not Detect); Parainfluenza Virus 2 Not Detected (Not Detect); Parainfluenza Virus 3 Not Detected (Not Detect); Parainfluenza Virus 4 Not Detected (Not Detect); Respiratory Syncytial Virus Not Detected (Not Detect)
[2019-09-17] MEDS: Ondansetron ODT 4 MG TAB.RAPDIS SL PRN (16:45)
[2019-09-17] MEDS: Torsemide 20 MG TABLET PO SCH (17:38)
[2019-09-18 02:14] LABS: Hematocrit 36.5 % (37.5-50.1); Hemoglobin 10.8 g/dL (12.9-16.9); Immature Platelets 4.3 % (1.1-6.1); Mean Corpuscular HGB Conc 29.6 g/dL (31.6-35.5); Mean Corpuscular Hemoglobin 24.5 pg (28.0-33.3); Mean Platelet Volume 10.8 fL (9.4-12.4); Red Blood Count 4.4 M/mcL (4.19-5.50); Red Cell Distribution Width 22.8 % (11.5-14.5); White Blood Count 6.4 K/mcL (4.3-11.1)
[2019-09-18 02:34] LABS: Calcium 8.6 mg/dL (8.6-10.3); Potassium 4.4 mEq/L (3.5-5.1)
[2019-09-18] MEDS: Ipratropium/Albuterol Neb 3 ML IH SCH ×2 (03:27→12:06)
[2019-09-18] MEDS: *HR* Heparin 5,000 UNIT/ML VIAL SQ SCH ×3 (03:41→13:08)
[2019-09-18] MEDS: hydrALAZINE 10 MG TABLET PO SCH ×2 (03:47→09:15)
[2019-09-18] MEDS: Levothyroxine 25 MCG TABLET PO SCH (06:18)
[2019-09-18 06:39] VITALS: BP 108/55
[2019-09-18] MEDS: Magnesium Oxide 400 MG TABLET PO SCH (07:44)
[2019-09-18] MEDS: Fluconazole 100 MG TABLET PO SCH (07:44)
[2019-09-18] MEDS: Folic Acid 1 MG TABLET PO SCH (07:44)
[2019-09-18] MEDS: Loratadine 10 MG TABLET PO SCH (07:44)
[2019-09-18] MEDS: levETIRAcetam 250 MG TABLET PO SCH (07:44)
[2019-09-18] MEDS: Gabapentin 100 MG CAPSULE PO SCH (07:44)
[2019-09-18] MEDS: Torsemide 20 MG TABLET PO SCH (07:44)
[2019-09-18] MEDS ORDERED: FLU Vac QV 19-20 (6Month+)/PF 0.5 ML SYRINGE IM ONE (10:12)
== END 2019-09-18 14:00 | disposition home or self-care (01) ==
LOC: 2NENU 12:19 → EMEROOARM 12:19 → SUATTDRO 16:12 → 2NENU 17:29
PROVIDERS: ADMIT Internal Medicine; ATTEND Internal Medicine

== ENCOUNTER 2019-09-28 11:14 | Observation (INO) ==
[2019-09-28 12:03] LABS: Mean Corpuscular HGB Conc 31.5 g/dL (31.6-35.5); Mean Corpuscular Hemoglobin 25.4 pg (28.0-33.3)
[2019-09-28 12:05] LABS: Basophils # 0.1 K/mcL (0.0-0.2); Basophils % 1.2 %; Eosinophils # 0.1 K/mcL (0.0-0.6); Eosinophils % 0.9 %; Hematocrit 37.5 % (37.5-50.1); Hemoglobin 11.8 g/dL (12.9-16.9); Immature Granulocytes % 0.1 % (0-4); Immature Platelets 5.7 % (1.1-6.1); Lymphocytes # 0.8 K/mcL (0.6-4.6); Lymphocytes % 11.4 %; Mean Corpuscular Volume 80.6 fL (83.0-100.0); Mean Platelet Volume 10.9 fL (9.4-12.4); Monocytes # 0.8 K/mcL (0.0-1.3); Monocytes % 11.8 %; Neutrophils # 5.1 K/mcL (1.6-8.9); Platelet Count 123 K/mcL (140-400); Red Blood Count 4.65 M/mcL (4.19-5.50); Red Cell Distribution Width 23.1 % (11.5-14.5); Segmented Neutrophils % 74.6 %; White Blood Count 6.8 K/mcL (4.3-11.1)
[2019-09-28 12:13] LABS: INR 1.6; Prothrombin Time 18.1 Seconds (9.4-12.1)
[2019-09-28 12:15] LABS: Activated Partial Thrombo Time 34.4 Seconds (26.0-36.0)
[2019-09-28 12:31] LABS: BUN/Creatinine Ratio 21 (6-26); Blood Urea Nitrogen 30 mg/dL (6-20); C-Reactive Protein 20 mg/L (Less than 10); Calcium 9.2 mg/dL (8.6-10.3); Carbon Dioxide 25 mEq/L (23-29); Chloride 103 mEq/L (98-107); Glucose 88 mg/dL (70-105); Osmolality,Calculated 292 (280-300); Potassium 3.6 mEq/L (3.5-5.1); Sodium 138 mEq/L (136-145); Troponin I 0.04 ng/mL (< 0.04); eGFR For African Americans > 60 (> 60); eGFR For Non-African Americans 55 (> 60)
[2019-09-28 12:44] LABS: Anisocytosis 2+ (Not Present); Platelet Estimate Slight Decrease (Normal); Polychromasia 1+ (Not Present)
[2019-09-28] MEDS ORDERED: Aspirin 325 MG TABLET PO ONE (13:16)
[2019-09-28] MEDS ORDERED: Naloxone 0.4 MG/ML INJ IVP PRN (14:13)
[2019-09-28] MEDS ORDERED: Ondansetron 4 MG/2 ML VIAL IVP PRN (14:21)
[2019-09-28] MEDS ORDERED: Ipratropium/Albuterol Neb 3 ML IH PRN (14:21)
[2019-09-28] MEDS ORDERED: Nitroglycerin 0.4 MG TAB.SUBL SL PRN (14:21)
[2019-09-28] MEDS ORDERED: Methocarbamol 500 MG TABLET PO PRN (14:22)
[2019-09-28] MEDS ORDERED: Azelastine 0.1% Nasal Spray 30 ML BOTTLE NS PRN (14:22)
[2019-09-28] MEDS ORDERED: traZODone 50 MG TABLET PO PRN (14:22)
[2019-09-28 15:27] LABS: Albumin 4.6 g/dL (3.5-5.7); Albumin/Globulin Ratio 1.9 (1.1-2.2); Bilirubin,Direct 0.6 mg/dL (0.0-0.2); Bilirubin,Total 1.6 mg/dL (0.3-1.0); Globulin 2.4 g/dL (2.4-3.5)
[2019-09-28 15:28] LABS: Magnesium 2.1 mg/dL (1.6-2.6); Phosphorous 4.6 mg/dL (2.7-4.5)
[2019-09-28] MEDS: hydrALAZINE 10 MG TABLET PO SCH ×2 (15:30→22:23)
[2019-09-28] MEDS ORDERED: *HR* Heparin 5,000 UNIT/ML VIAL SQ SCH (18:00)
[2019-09-28] MEDS ORDERED: levoFLOXacin 750 MG/150 ML 750 MG/150 ML BAG IVPB SCH (20:00)
[2019-09-28] MEDS: Gabapentin 100 MG CAPSULE PO SCH ×2 (20:07→20:45)
[2019-09-28] MEDS: Torsemide 20 MG TABLET PO SCH (20:44)
[2019-09-28] MEDS: levETIRAcetam 250 MG TABLET PO SCH (20:45)
[2019-09-28] MEDS ORDERED: Acetaminophen 325 MG TABLET PO ONE (21:33)
[2019-09-28] MEDS: *HR* Heparin 5,000 UNIT/ML VIAL SQ SCH (22:25)
[2019-09-29 00:49] LABS: Calcium 8.9 mg/dL (8.6-10.3); Potassium 3.9 mEq/L (3.5-5.1)
[2019-09-29] MEDS: *HR* Heparin 5,000 UNIT/ML VIAL SQ SCH (05:26)
[2019-09-29] MEDS: hydrALAZINE 10 MG TABLET PO SCH (05:26)
[2019-09-29 05:51] LABS: Adenovirus Not Detected (Not Detect); Bordetella Pertussis Not Detected (Not Detect); Chlamydophila pneumoniae Not Detected (Not Detect); Coronavirus 229E Not Detected (Not Detect); Coronavirus HKU1 Not Detected (Not Detect); Coronavirus NL63 Not Detected (Not Detect); Coronavirus OC43 Not Detected (Not Detect); Human Metapneumovirus Not Detected (Not Detect); Human Rhinovirus/Enterovirus Not Detected (Not Detect); Influenza A Subtype 2009 H1 Not Detected (Not Detect); Influenza B Not Detected (Not Detect); Mycoplasma pneumoniae Not Detected (Not Detect); Parainfluenza Virus 1 Not Detected (Not Detect); Parainfluenza Virus 2 Not Detected (Not Detect); Parainfluenza Virus 3 Not Detected (Not Detect); Parainfluenza Virus 4 Not Detected (Not Detect); Respiratory Syncytial Virus Not Detected (Not Detect)
[2019-09-29] MEDS ORDERED: Levothyroxine 25 MCG TABLET PO SCH (06:30)
[2019-09-29] MEDS ORDERED: Fluconazole 100 MG TABLET PO SCH (09:00)
[2019-09-29] MEDS ORDERED: Loratadine 10 MG TABLET PO SCH (09:00)
[2019-09-29] MEDS ORDERED: Spironolactone 25 MG TABLET PO SCH (09:00)
[2019-09-29] MEDS ORDERED: Magnesium Oxide 400 MG TABLET PO SCH (09:00)
[2019-09-29] MEDS: levETIRAcetam 250 MG TABLET PO SCH (09:22)
[2019-09-29] MEDS: Gabapentin 100 MG CAPSULE PO SCH (09:25)
[2019-09-29] MEDS: Torsemide 20 MG TABLET PO SCH (09:29)
[2019-09-29 10:46] VITALS: BP 110/59
== END 2019-09-29 13:05 | disposition home or self-care (01) ==
LOC: CDU 11:14 → EMEROOARM 11:14 → SUATTDRO 14:20 → CDU 16:40
PROVIDERS: ADMIT Internal Medicine; ATTEND Internal Medicine